=== PATIENT | male | born 1950 | race Caucasian/White ===

== ENCOUNTER 2018-04-24 19:50 | Emergency (ER) | payer OTHER, SELFPAY ==
[2018-04-24 19:29] VITALS: BP 130/85; PULSE 90; RESP 14; TEMP 37.1; O2SAT 100; BMI 23.3
[2018-04-24 19:50] VITALS: BP 166/98; PULSE 70; RESP 28; TEMP 36.8; O2SAT 100
[2018-04-24 20:02] VITALS: BP 130/85; PULSE 90; RESP 14; TEMP 37.1; O2SAT 100; BMI 23.3
--- NOTE | 2018-04-24 20:10 | ED_ITS ---
HPI - Nausea/Vomiting/Diarrhea General Chief complaint: Nausea/Vomiting/Diarrhea Stated complaint: N/V/diaphorisis w/ neg 12 lead. Time Seen by Provider: 04/24/18 20:10 Source: patient and family Mode of arrival: EMS Limitations: no limitations History of Present Illness HPI Narrative: Patient is a 67-year-old male here for evaluation of a fairly sudden onset of nausea and vomiting and diaphoresis. Patient states that throughout today he has been very anxious and stressed out about having individuals over for dinner this evening. He states that they did come over and they dinner. He states that afterwards he had a fairly sudden onset of diaphoresis in shaking chills and hot and cold spells. He did state that he had alcohol to drink this evening but ?not very much ?does appear that he drinks on a nightly basis. He states he does not know the exact cause of his symptoms however in the past he has had symptoms very similar to this which he did not seek help for. He states that lasted approximately 24 hr and then went away. He states that time he was feeling very stressed and anxious like he is feeling now. He did have some nausea without improved with Zofran prior to arrival here in the ER. Related Data Home Medications Medication Instructions Recorded Confirmed ibuprofen [Advil] 200 mg PO PRN PRN #0 tab 01/28/13 Previous Rx's Medication Instructions Recorded citalopram 20 mg PO QDAY #90 tab 03/22/18 temazepam 15 mg capsule 15 mg PO HS #20 cap 03/22/18 Allergies Allergy/AdvReac Type Severity Reaction Status Date / Time No Known Drug Allergies Allergy Unverified 04/24/18 19:32 Review of Systems Constitutional Reports body ache(s), Reports chills, Denies fatigue, Denies fever(s), Denies headache(s), Denies lethargy and Denies malaise Eyes Denies blurry vision and Denies diplopia ENT Ears, Nose, Mouth, and Throat: Denies vertigo, Denies dizziness and Denies headache(s) Cardiovascular Denies chest pain, Denies palpitations and Denies dyspnea Respiratory Denies cough and Denies dyspnea Gastrointestinal Gastrointestinal: Denies abdominal pain, Denies change in stool character, Reports nausea and Denies vomiting Musculoskeletal Denies myalgias and Denies arthralgias Integumentary/Breasts Denies lesions and Denies rash Neurologic Denies confusion, Denies vertigo, Denies dizziness, Denies headache(s), Denies focal weakness and Denies seizure-like activity Psychiatric Reports anxiety and Denies confusion Endocrine Denies fatigue and Denies palpitations Hematologic/Lymphatic Comments: Not on anticoagulation Allergic/Immunologic Denies urticaria PFSH Medical History Anxiety (Acute) Surgical History No pertinent past surgical history (Acute) Family History Brother Age: 56 Throat cancer Father Cancer Heart disease Mother Age: 92 Hypertension Stroke UTI (urinary tract infection) Social History Smoking Status: Never smoker Exam Initial Vital Signs Initial Vital Signs: Vital Signs Temperature 98.7 F 04/24/18 19:29 Pulse Rate 90 04/24/18 19:29 Respiratory Rate 14 04/24/18 19:29 Blood Pressure 130/85 04/24/18 19:29 Pulse Oximetry 100 04/24/18 19:29 Const General: cooperative, well developed, well groomed, No acute distress, anxious, diaphoretic, No ill appearing, No intoxicated appearing and well hydrated Orientation: alert, awake and oriented x3 HENMT Head: normal to inspection, normocephalic and atraumatic Resp Effort & Inspection: normal respiratory effort Auscultation: clear to auscultation bilaterally Cardio Rate: regular rate Rhythm: regular rhythm Pulses: radial pulses present GI Inspection: non-distended Palpation: soft, No firm and No tender Skin Lesions: no lesions Rashes: no rashes Neuro General: alert, awake and oriented x3 Cognition: normal cognition Speech: speech normal Sensory Exam: no sensory deficits noted Extrem General: normal to inspection and capillary refill normal Psych Appearance: grossly normal and well kempt Speech and Movement: not agitated Mood: anxious mood and No angry Attitude: cooperative Course Orders Ordered: ED Orders 04/24/18 20:20 Complete Blood Count AUTO DIFF Stat Comprehensive Metabolic Panel Stat Ethanol (ETOH) Stat Lipase Stat Troponin I Stat 04/24/18 21:55 Influenza A and B by PCR Rapid Stat Discontinued Medications Sodium Chloride (Normal Saline 0.9%) 1,000 mls @ 1,000 mls/hr IV BOLUS ONE Stop: 04/24/18 21:09 Last Infusion: 04/24/18 23:00 Dose: 0 mls/hr Admin: 04/24/18 20:42 Dose: 1,000 mls/hr Lorazepam (Ativan) 1 mg IV NOW ONE Stop: 04/24/18 20:48 Last Admin: 04/24/18 20:56 Dose: 1 mg Ondansetron HCl (Zofran) 4 mg IV NOW ONE Stop: 04/24/18 20:11 Vital Signs - 8 hr 04/24/18 19:29 04/24/18 19:50 04/24/18 20:02 Temperature 98.7 F 98.3 F 98.7 F Pulse Rate 90 70 90 Respiratory Rate 14 28 H 14 Blood Pressure 130/85 166/98 H 130/85 Blood Pressure [Left Arm] Pulse Oximetry 100 100 100 04/24/18 21:39 04/24/18 23:00 Temperature Pulse Rate 59 L 65 Respiratory Rate 17 20 Blood Pressure 190/88 H Blood Pressure [Left Arm] 172/84 H Pulse Oximetry 94 100 MDM - Nausea/Vomiting/Diarrhea Lab Data Attestation: I reviewed the patient's lab results. Result diagrams: 04/24/18 20:20 04/24/18 20:20 Lab Results 04/24/18 04/24/18 04/24/18 Range/Units 20:20 20:20 21:55 WBC 9.8 (4.5-11.0) X10^3/uL RBC 4.22 L (4.5-5.9) X10^6/uL Hgb 14.4 (13.5-17.5) g/dL Hct 41.6 (41-53) % MCV 98.8 (80-100) fL MCH 34.1 H (26-34) PG MCHC 34.5 (30-36) % RDW 13.5 (11.6-14.8) % Plt Count 160 (150-400) X10^3/uL Neut % (Auto) 86.3 H (50-75) % Lymph % (Auto) 9.4 L (25-40) % [place] % (Auto) 3.6 (3-14) % Eos % (Auto) 0.0 L (2-4) % Baso % (Auto) 0.7 (0-2) % Neut # (Auto) 8400 H (1691-6683) /uL Sodium 143 (137-145) mmol/L Potassium 3.8 (3.4-5.1) mmol/L Chloride 105 (98-107) mmol/L Carbon Dioxide 20 L (22-32) mmol/L BUN 14 (9-20) mg/dL Creatinine 0.50 L (0.66-1.25) mg/dL Estimated GFR > 60.0 (>60) mL/min BUN/Creatinine Ratio 28.0 H (6-22) Glucose 161 H (80-110) mg/dL Calcium 10.0 (8.4-10.2) mg/dL Total Bilirubin 0.8 (0.2-1.3) mg/dL AST 29 (17-59) IU/L ALT 29 (21-72) IU/L Alkaline Phosphatase 75 (38-126) U/L Troponin I < 0.012 (0.01-0.034) ng/mL Total Protein 7.6 (6.3-8.2) g/dL Albumin 4.7 (3.5-5.0) g/dL Globulin 2.9 (1.7-4.1) g/dL Albumin/Globulin Ratio 1.6 (1.0-2.8) Lipase 48 (23-300) U/L Ethyl Alcohol < 10 mg/dL Influenza A & B (PCR) Negative (Negative) ECG Data Attestation: I personally reviewed and interpreted this ECG as follows: Prior ECG tracings: not available for review Interpretation: Sinus rhythm Ventricular rate is 65 Normal as needed oval Normal QRS Normal QTC Normal axis No ST T wave changes MDM Narrative Medical decision making narrative: Physical exam and workup did not point towards an infectious source of his symptoms. Flu was negative. His alcohol level was 0 here in the emergency department. He states that he has never withdrawn from alcohol in the past however does have a fairly significant alcohol history to include daily drinking. I did consider alcohol withdrawal as the source of his symptoms this evening however patient does not think that this is the case. No signs of trauma. He did report a significant improvement of his symptoms after the Ativan. Has had symptoms similar to this in the past when he had anxiety issues. I do feel that this is most likely a panic attack or anxiety causing his symptoms. Hold on further workup. Low suspicion for ACS. Patient does have benzodiazepines at home that he can take. Will hold on further workup for now. Patient was given return precautions. He expressed understanding and agreement with plan. Discharge Plan Departure Patient Disposition: Home Clinical Impression: Anxiety, Diaphoresis Discharge Date/Time: 12/12/18 23:00 Interventions: ED Discharge Assessment Last Done: 04/24/18 23:00 Instructions: DI for Alcohol Abuse, DI for Anxiety -- Adult Activity Restrictions/Additional Instructions: Recommend you continue all of your medications as directed. Contact your primary care doctor tomorrow for a follow-up. No driving while you are drinking. Return to the emergency department for any new or worsening symptoms Prescriptions: No Action ibuprofen [Advil] 200 MG tablet 200 mg PO PRN PRNQty: 0 RF: 0 citalopram 20 mg tablet 20 mg PO QDAY Qty: 90 RF: 0 temazepam 15 mg capsule 15 mg PO HS Qty: 20 RF: 0
[2018-04-24 20:27] LABS: Add Manual Diff / Slide Review NO; Basophils Percent Auto 0.7 % (0-2); Hematocrit 41.6 % (41-53); Hemoglobin 14.4 g/dL (13.5-17.5); Lymphocytes Percent Auto 9.4 % (25-40); Mean Corpuscular HGB Conc 34.5 % (30-36); Mean Corpuscular Hemoglobin 34.1 PG (26-34); Mean Corpuscular Volume 98.8 fL (80-100); Monocytes Percent Auto 3.6 % (3-14); Neutrophils Absolute Auto 8400 /uL (3000-5900); Neutrophils Percent Auto 86.3 % (50-75); Platelet Count 160 X10^3/uL (150-400); Red Blood Cell Count 4.22 X10^6/uL (4.5-5.9); Red Cell Distribution Width 13.5 % (11.6-14.8); White Blood Cell Count 9.8 X10^3/uL (4.5-11.0)
[2018-04-24 20:39] LABS: Alanine Aminotransferase 29 IU/L (21-72); Albumin 4.7 g/dL (3.5-5.0); Albumin Globulin Ratio 1.6 (1.0-2.8); Alkaline Phosphatase 75 U/L (38-126); Aspartate Aminotransferase 29 IU/L (17-59); Bilirubin Total 0.8 mg/dL (0.2-1.3); Blood Urea Nitrogen 14 mg/dL (9-20); Carbon Dioxide 20 mmol/L (22-32); Chloride 105 mmol/L (98-107); Estimated Glomerular Filt Rate > 60.0 mL/min (>60); Ethanol (ETOH) < 10 mg/dL; Globulin 2.9 g/dL (1.7-4.1); Glucose 161 mg/dL (80-110); HEMOLYSIS < 15 (0-50); Lipase 48 U/L (23-300); Potassium 3.8 mmol/L (3.4-5.1); Sodium 143 mmol/L (137-145); Total Protein 7.6 g/dL (6.3-8.2)
[2018-04-24] MEDS: SODIUM CHLORIDE 0.9% 1,000 ML 1000 ML IV (20:42)
--- NOTE | 2018-04-24 20:48 | PC.NURSE ---
sudden onset tremors/diaphoresis/nausea x2 hours, reports very stressed today, ETOH intake of a beer and a half prior to episode, appears pale, chilled, reports similar episode approx 1 year ago also after drinking alcohol. States he has taken his regular medications today with no recent changes. Denies cp/soa/cough/diarrhea/dysuria/fever/trauma/dizziness/headache or other sx, NSR on monitor, lungs clear/equal bilat, abd soft/nontender
[2018-04-24 20:51] LABS: Troponin I < 0.012 ng/mL (0.01-0.034)
[2018-04-24] MEDS: LORazepam 2 MG/ML SYRINGE 1 MG IV (20:56)
[2018-04-24 21:39] VITALS: BP 172/84; PULSE 59; RESP 17; O2SAT 94
[2018-04-24 22:16] LABS: Influenza A and B by PCR Rapid Negative (Negative)
[2018-04-24 23:00] VITALS: BP 190/88; PULSE 65; RESP 20; O2SAT 100
[2018-04-25 17:15] LABS: Hemoglobin A1C% w Est Avg Glu 5.3 % (4.0-6.0)
== END 2018-04-24 23:00 | disposition home or self-care (01) ==
PROVIDERS: Emergency Provider Emergency Medicine; Family Provider Family Medicine; PCP Family Medicine
DX: F41.9 Anxiety disorder, unspecified (principal); R61 Generalized hyperhidrosis
CPT/HCPCS: 80053; 80320; 83036; 83690; 84484; 85025; 87400; 93005; 93010; 96361; 96374; 99283; 99284; J2060

== ENCOUNTER → 2018-08-28 13:39 | Outpatient (CLI) | payer OTHER, SELFPAY ==
[2018-08-28 14:47] LABS: Hemoglobin A1C% w Est Avg Glu 5.1 % (4.0-6.0)
[2018-08-28 15:26] LABS: Prostate Specific Antigen Scrn 1.33 ng/mL (0.1-4.0)
== END ==
PROVIDERS: Family Provider Family Medicine; PCP Family Medicine; Visit Provider Family Medicine
DX: R73.09 Other abnormal glucose (principal); Z12.5 Encounter for screening for malignant neoplasm of prostate
CPT/HCPCS: 36415; 83036; G0103

== ENCOUNTER → 2019-01-17 12:54 | Outpatient (CLI) | payer OTHER, SELFPAY ==
[2019-01-17 13:45] LABS: Alanine Aminotransferase 13 IU/L (21-72); Albumin 4.2 g/dL (3.5-5.0); Albumin Globulin Ratio 1.4 (1.0-2.8); Alkaline Phosphatase 67 U/L (38-126); Aspartate Aminotransferase 23 IU/L (17-59); BUN Creatinine Ratio 21.3 (6-22); Bilirubin Total 0.6 mg/dL (0.2-1.3); Blood Urea Nitrogen 17 mg/dL (9-20); C-Reactive Protein Quant 1.5 mg/dL (<1.0); Calcium 9.6 mg/dL (8.4-10.2); Carbon Dioxide 26 mmol/L (22-32); Chloride 104 mmol/L (98-107); Estimated Glomerular Filt Rate > 60.0 mL/min (>60); Globulin 3.1 g/dL (1.7-4.1); Glucose 81 mg/dL (80-110); HEMOLYSIS < 15 (0-50); Potassium 4.2 mmol/L (3.4-5.1); Sodium 140 mmol/L (137-145); Total Protein 7.3 g/dL (6.3-8.2); Uric Acid 6.8 mg/dL (3.5-8.5)
[2019-01-17 13:58] LABS: Rheumatoid Factor < 8.6 IU/mL (<12.0)
[2019-01-17 14:00] LABS: Add Manual Diff / Slide Review NO; Basophils Absolute Auto 0 /uL (0-100); Basophils Percent Auto 0.3 % (0-2); Eosinophils Absolute Auto 100 /uL (0-450); Eosinophils Percent Auto 1.2 % (2-4); Hematocrit 38.6 % (41-53); Hemoglobin 13.4 g/dL (13.5-17.5); Lymphocytes Absolute Auto 1600 /uL (1100-4500); Lymphocytes Percent Auto 20.3 % (25-40); Mean Corpuscular HGB Conc 34.7 % (30-36); Mean Corpuscular Hemoglobin 32.7 PG (26-34); Mean Corpuscular Volume 94.4 fL (80-100); Monocytes Absolute Auto 600 /uL (0-900); Monocytes Percent Auto 8.1 % (3-14); Neutrophils Absolute Auto 5500 /uL (1500-7000); Neutrophils Percent Auto 70.1 % (50-75); Platelet Count 182 X10^3/uL (150-400); Red Blood Cell Count 4.09 X10^6/uL (4.5-5.9); Red Cell Distribution Width 12.8 % (11.6-14.8); White Blood Cell Count 7.9 X10^3/uL (4.5-11.0)
[2019-01-17 14:17] LABS: Erythrocyte Sedimentation Rate 14 MM/HR (0-15)
[2019-01-19 20:08] LABS: ANA Screen, IFA Negative (Negative)
== END ==
PROVIDERS: PCP Family Medicine; Visit Provider Family Medicine
DX: M19.90 Unspecified osteoarthritis, unspecified site (principal); M25.50 Pain in unspecified joint; M25.539 Pain in unspecified wrist; M79.643 Pain in unspecified hand
CPT/HCPCS: 36415; 80053; 84550; 85025; 85651; 86038; 86140; 86430

== ENCOUNTER → 2019-01-30 10:50 | Outpatient (CLI) | payer OTHER, SELFPAY ==
--- NOTE | 2019-01-30 10:54 | DI.RAD.S_ITS ---
PROCEDURE: XR HAND RT MIN 3V INDICATIONS: Hand, wrist pain, all over joint pain, history or arthritis TECHNIQUE: 3 views of the hand(s) acquired. COMPARISON: None. FINDINGS: Bones: No fractures or dislocations. Carpal bones are normally aligned. No suspicious bony lesions. Degenerative changes are seen throughout, particularly involving the distal interphalangeal joints. At least one hooked osteophyte can be seen involving the 3rd metacarpal head. Soft tissues: There is a 2 mm radiopaque foreign body seen within the soft tissues adjacent to the proximal aspect of the distal phalanx of the thumb. IMPRESSION: Osteoarthritic degenerative changes are seen. At least one hooked osteophyte can be seen. This can be seen in patients with CPPD deposition disease as well as hemachromatosis. 2 mm foreign body involving the soft tissues of the thumb. Dictated by: Osvaldo Acuña M.D. on 01/30/2019 at 11:19 Approved by: Osvaldo Acuña M.D. on 01/30/2019 at 11:21
--- NOTE | 2019-01-30 10:54 | DI.RAD.S_ITS ---
PROCEDURE: XR HAND LT MIN 3V INDICATIONS: Hand, wrist pain, all over joint pain, history or arthritis TECHNIQUE: 3 views of the hand(s) acquired. COMPARISON: [facility], ANGELO, FINGER LT, 10/15/2008, 19:39. [facility], ANGELO, XR HAND RT MIN 3V, 01/30/2019, 10:51. FINDINGS: Bones: No fractures or dislocations. Carpal bones are normally aligned. No suspicious bony lesions. Osteoarthritic degenerative changes are seen, with joint space narrowing and associated irregularity and osteophyte formation, particularly involving the distal interphalangeal joints. There is remote injury with effusion involving the proximal interphalangeal joint of the 5th finger. Soft tissues: No suspicious soft tissue calcifications. IMPRESSION: Age-appropriate osteoarthritic degenerative changes are seen. Remote injury with fusion involving the proximal interphalangeal joint of the 5th finger, which is stable compared to 2008. Dictated by: Osvaldo Acuña M.D. on 01/30/2019 at 11:21 Approved by: Osvaldo Acuña M.D. on 01/30/2019 at 11:22
== END ==
PROVIDERS: PCP Family Medicine; Visit Provider Family Medicine
DX: M25.542 Pain in joints of left hand (principal); M25.541 Pain in joints of right hand; M25.532 Pain in left wrist; M25.531 Pain in right wrist; M25.741 Osteophyte, right hand; M25.742 Osteophyte, left hand; M79.5 Residual foreign body in soft tissue
CPT/HCPCS: 73130

== ENCOUNTER 2019-03-21 07:30 | Day surgery (SDC) | payer OTHER, SELFPAY ==
[2019-03-21] VITALS (7 sets, daily range): BP systolic 131–167; BP diastolic 74–91; PULSE 56–70; RESP 13–20; TEMP 36.2–36.6; O2SAT 96–98; BMI 24.3
--- NOTE | 2019-03-21 | PATH_ITS ---
[facility] Accession Number: [id number] . 01 Material submitted: . PART A: body - POLYP AT 64 PART B: rectum - RECTAL - LOW - POLYP . 01 Clinical history: . SCREENING COLONOSCOPY . 02 Diagnosis: A. Colon, Polyp At 64, Biopsy: Tubular adenoma. . B. Rectum, Low, Polyp, Biopsy: Tubular adenoma. I 03/24/2019 1033 Local . 02 Electronically signed: . Shani Lepe MD, Pathologist NPI- [id number] . 01 Gross description: . Part A: POLYP AT 64: Received in formalin are 2 fragment(s) of romero, soft tissue measuring 0.1 x 0.1 x 0.1 cm in aggregate submitted entirely in 1 cassette(s) Part B: RECTAL - LOW - POLYP: Received in formalin is 1 fragment(s) of romero, soft tissue measuring 0.2 x 0.2 x 0.2 cm submitted entirely in 1 cassette(s) /[facility] [place] 03/21/2019 1908 Local . 02 Pathologist provided ICD-10: D12.6, D12.8 . 02 CPT . 782267, 117466 Performed at: 01 [facility] [address], [place], [place] [id number] MD Marlon Hussein MD Phone: [phone] Performed at: 02 [facility] [address] [place], [place] [id number] MD Shani Lepe MD Phone: [phone]
[2019-03-21] MEDS: SODIUM CHLORIDE 0.9% 1,000 ML 200 ML IV (07:59)
--- NOTE | 2019-03-21 08:27 | P.HP_ITS ---
History of Present Illness History of Present Illness Date Patient Seen: 03/21/19 Time Patient Seen: 08:27 Chief complaint: [id number] SCREENING COLONOSCOPY Narrative: This is a 68-year-old man with no personal or family history of colon related diseases, but he has never had a screening colonoscopy. He denies any melena or hematochezia. He denies any abdominal pain or unexplained weight loss. He does have some arthritis and gout symptoms that are being managed by his primary care doctor. He denies ever having a heart attack or stroke, or any chest pain symptoms. ROS: Thirteen system review is negative other than as mentioned below and in HPI. PE: GENERAL: Well groomed and cooperative. Appears stated age. Answers questions promptly and appropriately. Vital signs noted. HENT: Normocephalic, atraumatic. Hearing intact. Oral mucosa is pink and moist. EYES: Conjunctiva pink, sclera white, no periorbital swelling. CARDIOVASCULAR: Regular rate. No pedal edema. RESPIRATORY: Normal respiratory rate, breathing comfortably on room air. GASTROINTESTINAL: Abdomen soft and non-distended GENITALURINARY: No flank tenderness. MUSCULOSKELETAL: Equal tone and mass bilaterally. SKIN: Warm, dry, soft, appropriate color for ethnicity. No other lesions, r ashes, or wounds. NEURO: Alert and Oriented X 3. No gross sensory deficits, or cognitive issues. PSYCH: Appropriate affect and mood. Patient History Medical History Anxiety (Acute) Surgical History No pertinent past surgical history (Acute) Family & Social History Family History Brother Age: 57 Throat cancer Father Cancer Heart disease Mother Age: 93 Hypertension Stroke UTI (urinary tract infection) Tobacco & Substance use: Smoking Status Never smoker alcohol intake frequency 0-2 drinks per day Substance Use Type does not use Meds Home Medications and Allergies Home Medications Medication Instructions Recorded Confirmed Type citalopram 20 mg tablet 20 mg PO QDAY #90 tab 08/29/18 03/21/19 Rx meloxicam 15 mg tablet 15 mg PO DAILY #60 tab 02/07/19 03/21/19 Rx Allergies Allergy/AdvReac Type Severity Reaction Status Date / Time No Known Drug Allergies Allergy Verified 03/21/19 07:57 Exam Vital Signs (past 8 hours): - 03/21/19 07:49 Temperature 97.9 F Pulse Rate 56 L Respiratory Rate 16 Blood Pressure 143/75 H Pulse Oximetry 97 Oxygen Delivery Method Room Air Assessment & Plan Assessment and plan (1) Colon cancer screening: Current visit: Yes Status: Acute (2) At average risk for colon cancer: Current visit: Yes Status: Acute Assessment & Plan narrative: This is a 68-year-old man who is relatively healthy but has never had a colon cancer screening. Risks and benefits of screening colonoscopy and possible polypectomy were described including risk of bleeding, perforation, need for surgery, need for prolonged hospital stay, need for additional procedures. The patient desires to proceed with his colonoscopy procedure. Plan: Screening colonoscopy and possible polypectomy Time Spent With Patient Time with patient: 15-24 minutes Quality VTE Deep Vein Thrombosis/Pulmonary Embolism Present on Admission: No
[2019-03-21] MEDS: MIDAZOLAM 5 MG/5 ML VIAL IV (08:56)
[2019-03-21] MEDS: fentaNYL 250 MCG/5 ML INJ IV (08:57)
--- NOTE | 2019-03-21 08:59 | PM.OP.ENDO ---
Operative Date/Time/Diagnoses Date of procedure: 03/21/19 Time of procedure: 09:02 Pre-op diagnosis: Average risk for colon cancer, never had a screening colonoscopy Post-op diagnosis: other (Colon polyps) Procedure & Clinicians Study performed: Colonoscopy, polypectomy x2 with cold forceps Same procedure as scheduled: Yes Indications: Average risk for colon cancer, never had a colonoscopy Surgeon: Lilli Sousa Procedure Notes SCOAP/Timeout: Performed Procedure in detail: The patient was brought to the room and placed in left lateral decubitus position with all bony prominences padded. A time-out was performed and then the patient was given procedural sedation starting with [4] mg of Versed and [100] mcg of fentanyl. Vitals were monitored throughout the procedure and remained stable. Once adequately sedated the procedure was begun. A rectal exam was performed revealing [no abnormalities]. The colonoscope was then introduced to the rectum and advanced to the cecum in the usual fashion. []The cecum was identified by the appendiceal orifice, the mucosal try fold, and the ileocecal valve. The scope was then retracted while rotating side to side and examining each mucosal fold. [2 polyps were removed 1 flat polyp at 65 cm and 1 flap polyp low in the rectum about 5 cm from the anal verge. Both removed with cold forceps with good hemostasis] At the conclusion procedure retroflexion was performed and [small grade 1 internal hemorrhoids without stigmata of bleeding were seen]. The scope was then withdrawn from the rectum the procedure was concluded. The patient tolerated the procedure well was transferred to the PACU in stable condition. Scope withdrawal time: 11 Sedation minutes: 19 Findings: polyp Specimen(s): other (Two polyps were sent, 1 at 65 cm and 1 at 5 cm from the anal verge. Both were flat sessile polyps less than half a cm in size) Complications: none Impression: Normal colon, except for 2 small polyps Post-procedure Recommendations: Colonscopy in 10 years (As long as pathology is non neoplastic) Follow up: as needed Disposition: PACU
--- NOTE | 2019-03-21 09:39 | SUR.PHASEII ---
pt awake and alert. denies any complaints. No distress noted . pt d/sindy with his .
== END 2019-03-21 09:39 | disposition home or self-care (01) ==
PROVIDERS: PCP Family Medicine; Visit Provider Surgery
PROC: 0DJD8ZZ Inspection of Lower Intestinal Tract, Via Natural or Artificial Opening Endoscopic (ICD-10-PCS; CPT 45378; principal; 2019-03-21 08:45)
DX: Z12.11 Encounter for screening for malignant neoplasm of colon (principal); F41.9 Anxiety disorder, unspecified; D12.6 Benign neoplasm of colon, unspecified; D12.8 Benign neoplasm of rectum
CPT/HCPCS: 45380; 99152; J2250; J3010

== ENCOUNTER 2019-09-04 14:27 | Emergency (ER) | payer OTHER, SELFPAY ==
[2019-09-04 14:30] VITALS: BP 147/113; PULSE 111; RESP 15; TEMP 37.1; O2SAT 95; BMI 22.8
--- NOTE | 2019-09-04 15:10 | ED.ALCOHOL ---
HPI - Alcohol General Chief Complaint: Toxicology Problem Stated Complaint: alcohol detox x3-4 days Time Seen by Provider: 09/04/19 14:43 Source: patient Mode of arrival: Ambulatory Limitations: no limitations History of Present Illness HPI narrative: Patient here voluntarily for alcohol sensation/withdrawal symptoms. Patient states he just turned 69 years of age last month and he has been drinking daily/alcohol for many decades and he has decided to stop drinking alcohol. Last drink was more than 72 hours ago. Patient states has never gone to rehab in the past. No substance abuse treatment. Denies any SI or HI. No auditory or visual hallucinations. Here because of nausea and vomiting worse with p.o. challenge. Has insomnia and has some tremors. Denies any fall or injury. Denies any pain. He does have medication for anxiety but has not taken it because anything by mouth causes him to vomit. No active vomiting at this time. 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 He does not wish for inpatient treatment. He would like referrals for outpatient. MD complaint: alcohol withdrawal Associated symptoms: nausea and vomiting Related Data Previous Rx's Medication Instructions Recorded citalopram 20 mg tablet 20 mg PO QDAY #90 tab 08/29/18 meloxicam 15 mg tablet 15 mg PO DAILY #60 tab 02/07/19 temazepam 15 mg capsule 15 mg PO HS #60 cap 04/23/19 ondansetron 4 mg PO Q8H PRN #10 tab 09/04/19 pantoprazole [Protonix] 40 mg PO DAILY #14 tab 09/04/19 Allergies Allergy/AdvReac Type Severity Reaction Status Date / Time No Known Drug Allergies Allergy Verified 09/04/19 14:41 Review of Systems Review of Systems Narrative: GENERAL: Denies chills, fatigue, malaise, fever, sweats. HEENT: Denies sinus pain, ear pain, sore throat, difficulty swallowing, dizziness. RESPIRATORY: Denies dyspnea, cough, wheezing, hemoptysis, sputum. CARDIOVASCULAR: Denies chest pain, palpitations, orthopnea, edema, GASTROINTESTINAL: Denies any abdominal pain. No diarrhea. Has nausea and vomiting, nonbloody : Denies dysuria, frequency, incontinence, hematuria, urinary retention. MUSCULOSKELETAL: denies weakness, joint pain, or bony pain SKIN: Denies rash, skin lesions, or other NEUROLOGIC: Denies weakness, headache, numbness, change in speech, confusion, seizures, incoordination. PSYCHIATRIC: Feels anxious 12 point review of systems is negative except for those stated above ROS Unobtainable: All systems reviewed & are unremarkable except as noted in HPI and below Patient History Medical History Anxiety (Acute) Surgical History No pertinent past surgical history (Acute) Family History Brother Age: 57 Throat cancer Father Cancer Heart disease Mother Age: 93 Hypertension Stroke UTI (urinary tract infection) Social History Smoking Status: Never smoker Smoking Status: Never smoker alcohol intake frequency: 3 or more drinks per day Substance Use Type: does not use Exam Narrative Exam Narrative: GENERAL: [69] year old patient appears stated age. Well-nourished, well-developed patient, in no distress, not toxic HEAD: Atraumatic. Normocephalic. EYES: Pupils equal round and reactive. Extraocular motions intact. No scleral icterus. No injection or drainage. ENT: Nose without bleeding, purulent drainage. Throat without erythema, tonsillar hypertrophy or exudate. Airway patent. NECK: Trachea midline. Non tender CARDIOVASCULAR: Regular rate and rhythm without murmurs, gallops, or rubs. RESPIRATORY: Clear to auscultation. Breath sounds equal bilaterally. No wheezes, rales, or rhonchi. GASTROINTESTINAL: Abdomen soft, non-tender, nondistended. EXTREMITIES: No edema or joint tenderness. BACK: Nontender without deformity or crepitance. No flank tenderness. NEURO: AOx4 SKIN: No rash or erythema of visible areas Patient slightly anxious but not toxic appearing. Patient is cooperative. Does not appear depressed. No SI no HI. Not flat affect. No tangential thoughts or flight of ideas. No visual or auditory hallucinations. Slight tremors of the hands. Initial Vital Signs Initial Vital Signs: Vital Signs Temperature 98.7 F 09/04/19 14:30 Pulse Rate 111 H 09/04/19 14:30 Respiratory Rate 15 09/04/19 14:30 Blood Pressure 147/113 H 09/04/19 14:30 Pulse Oximetry 95 09/04/19 14:30 Course Orders Ordered: ED Orders 09/04/19 14:40 Complete Blood Count AUTO DIFF Stat Comprehensive Metabolic Panel Stat Ethanol (ETOH) Stat Lipase Stat Discontinued Medications Sodium Chloride (Normal Saline 0.9%) 1,000 mls @ 1,000 mls/hr IV BOLUS ONE Stop: 09/04/19 16:06 Last Infusion: 09/04/19 16:29 Dose: 0 mls/hr Documented by: Admin: 09/04/19 15:19 Dose: 1,000 mls/hr Documented by: ANISA Lorazepam (Ativan) 1 mg IV NOW ONE Stop: 09/04/19 15:08 Last Admin: 09/04/19 15:22 Dose: 1 mg Documented by: ANISA Multivitamins (Tab-A-Mily) 1 tab PO NOW ONE Stop: 09/04/19 15:08 Last Admin: 09/04/19 15:28 Dose: 1 tab Documented by: ANISA Ondansetron HCl (Zofran) 4 mg IV NOW ONE Stop: 09/04/19 15:08 Last Admin: 09/04/19 15:18 Dose: 4 mg Documented by: ANISA Pantoprazole Sodium (Protonix) 40 mg IV NOW ONE Stop: 09/04/19 15:25 Last Admin: 09/04/19 15:31 Dose: 40 mg Documented by: ANISA Reevaluation(s) Reevaluation #1: Blood pressure improved to 121/72. Patient resting comfortably. No nausea or vomiting. No tremors. Resting very comfortable. He desires discharge home. Not toxic at discharge. Time 5:00 p.m. Vital Signs Vital signs: Vital Signs - 8 hr 09/04/19 14:30 09/04/19 16:30 Temperature 98.7 F Pulse Rate 111 H 84 Respiratory Rate 15 16 Blood Pressure 147/113 H Blood Pressure [Left Arm] 121/72 Pulse Oximetry 95 92 MDM - Alcohol Differential Diagnosis Differential diagnosis: Likely alcohol withdrawal syndrome Lab Data Result diagrams: 09/04/19 14:40 09/04/19 14:40 Labs: Lab Results 09/04/19 09/04/19 Range/Units 14:40 14:40 WBC 9.5 (4.5-11.0) X10^3/uL RBC 4.79 (4.5-5.9) X10^6/uL Hgb 16.2 (13.5-17.5) g/dL Hct 45.6 (41-53) % MCV 95.1 (80-100) fL MCH 33.7 (26-34) PG MCHC 35.5 (30-36) % RDW 13.8 (11.6-14.8) % Plt Count 155 (150-400) X10^3/uL Neut % (Auto) 77.1 H (50-75) % Lymph % (Auto) 11.1 L (25-40) % [place] % (Auto) 11.6 (3-14) % Eos % (Auto) 0.1 L (2-4) % Baso % (Auto) 0.1 (0-2) % Neut # (Auto) 7300 H (4799-0038) /uL Lymph # (Auto) 1100 (8054-1869) /uL [place] # (Auto) 1100 H (0-900) /uL Eos # (Auto) 0 (0-450) /uL Baso # (Auto) 0 (0-100) /uL Sodium 135 L (137-145) mmol/L Potassium 3.2 L (3.4-5.1) mmol/L Chloride 99 (98-107) mmol/L Carbon Dioxide 21 L (22-32) mmol/L BUN 21 H (9-20) mg/dL Creatinine 0.61 L (0.66-1.25) mg/dL Estimated GFR > 60.0 (>60) mL/min BUN/Creatinine Ratio 34.4 H (6-22) Glucose 122 H (80-110) mg/dL Calcium 9.9 (8.4-10.2) mg/dL Total Bilirubin 0.8 (0.2-1.3) mg/dL AST 61 H (17-59) IU/L ALT 52 H (<50) IU/L Alkaline Phosphatase 77 (38-126) U/L Total Protein 7.9 (6.3-8.2) g/dL Albumin 4.7 (3.5-5.0) g/dL Globulin 3.2 (1.7-4.1) g/dL Albumin/Globulin Ratio 1.5 (1.0-2.8) Lipase 52 (23-300) U/L Ethyl Alcohol < 10 ( - 10) mg/dL MDM Narrative Medical decision making narrative: Telemetry dedicated this time. Patient cooperative nontoxic. Blood pressure noted. Patient is slightly anxious. Patient does have a family physician. He was told by the family physician to go to the ER today. Patient is cooperative, not toxic appearing. No SI or HI. Patient does not want inpatient rehabilitation. Patient is on citalopram for anxiety Low CIWA score..5 Discharge Plan Departure Patient Disposition: Home Clinical Impression: Alcohol withdrawal syndrome Qualifiers: Complication of substance-induced condition: uncomplicated Qualified Code(s): F10.230 - Alcohol dependence with withdrawal, uncomplicated Instructions: DI for Alcohol Abuse, Drug and Alcohol Withdrawal, DI for Alcoholic Gastritis Activity Restrictions/Additional Instructions: See family physician within a week for recheck and for referral for outpatient treatment for alcohol abuse. Or call provided clinic list. No driving today. Return if worse. Prescriptions: New ondansetron 4 mg tablet,disintegrating 4 mg PO Q8H PRN (Reason: nausea and vomiting) Qty: 10 RF: 0 pantoprazole [Protonix] 40 mg tablet,delayed release (DR/EC) 40 mg PO DAILY Qty: 14 RF: 0 No Action temazepam 15 mg capsule 15 mg PO HS Qty: 60 RF: 5 citalopram 20 mg tablet 20 mg PO QDAY Qty: 90 RF: 3 meloxicam 15 mg tablet 15 mg PO DAILY Qty: 60 RF: 5 Referrals: Luis Daniel Lin MD [Primary Care Provider] -
[2019-09-04 15:17] LABS: Add Manual Diff / Slide Review NO; Basophils Absolute Auto 0 /uL (0-100); Basophils Percent Auto 0.1 % (0-2); Eosinophils Absolute Auto 0 /uL (0-450); Eosinophils Percent Auto 0.1 % (2-4); Hematocrit 45.6 % (41-53); Hemoglobin 16.2 g/dL (13.5-17.5); Lymphocytes Absolute Auto 1100 /uL (1100-4500); Lymphocytes Percent Auto 11.1 % (25-40); Mean Corpuscular HGB Conc 35.5 % (30-36); Mean Corpuscular Hemoglobin 33.7 PG (26-34); Mean Corpuscular Volume 95.1 fL (80-100); Monocytes Absolute Auto 1100 /uL (0-900); Monocytes Percent Auto 11.6 % (3-14); Neutrophils Absolute Auto 7300 /uL (1500-7000); Neutrophils Percent Auto 77.1 % (50-75); Platelet Count 155 X10^3/uL (150-400); Red Blood Cell Count 4.79 X10^6/uL (4.5-5.9); Red Cell Distribution Width 13.8 % (11.6-14.8); White Blood Cell Count 9.5 X10^3/uL (4.5-11.0)
[2019-09-04] MEDS: ONDANSETRON 4 MG/2 ML INJ IV (15:18)
[2019-09-04] MEDS: SODIUM CHLORIDE 0.9% 1,000 ML 1000 ML IV (15:19)
[2019-09-04] MEDS: LORazepam 2 MG/ML INJ 1 MG IV (15:22)
[2019-09-04 15:23] LABS: Alanine Aminotransferase 52 IU/L (<50); Albumin 4.7 g/dL (3.5-5.0); Albumin Globulin Ratio 1.5 (1.0-2.8); Alkaline Phosphatase 77 U/L (38-126); Aspartate Aminotransferase 61 IU/L (17-59); BUN Creatinine Ratio 34.4 (6-22); Bilirubin Total 0.8 mg/dL (0.2-1.3); Blood Urea Nitrogen 21 mg/dL (9-20); Calcium 9.9 mg/dL (8.4-10.2); Carbon Dioxide 21 mmol/L (22-32); Chloride 99 mmol/L (98-107); Estimated Glomerular Filt Rate > 60.0 mL/min (>60); Ethanol (ETOH) < 10 mg/dL; Globulin 3.2 g/dL (1.7-4.1); Glucose 122 mg/dL (80-110); HEMOLYSIS 19 (0-50); Lipase 52 U/L (23-300); Potassium 3.2 mmol/L (3.4-5.1); Sodium 135 mmol/L (137-145); Total Protein 7.9 g/dL (6.3-8.2)
[2019-09-04] MEDS: MULTIVITAMIN 1 TABLET 1 TAB PO (15:28)
[2019-09-04] MEDS: PANTOPRAZOLE 40 MG VIAL IV (15:31)
[2019-09-04 16:30] VITALS: BP 121/72; PULSE 84; RESP 16; O2SAT 92
--- NOTE | 2019-09-04 17:23 | ED_ITS ---
HPI - Alcohol General Chief Complaint: Toxicology Problem Stated Complaint: alcohol detox x3-4 days Time Seen by Provider: 09/04/19 14:43 Source: patient Mode of arrival: Ambulatory Limitations: no limitations Related Data Previous Rx's Medication Instructions Recorded citalopram 20 mg tablet 20 mg PO QDAY #90 tab 08/29/18 meloxicam 15 mg tablet 15 mg PO DAILY #60 tab 02/07/19 temazepam 15 mg capsule 15 mg PO HS #60 cap 04/23/19 ondansetron 4 mg PO Q8H PRN #10 tab 09/04/19 pantoprazole [Protonix] 40 mg PO DAILY #14 tab 09/04/19 Allergies Allergy/AdvReac Type Severity Reaction Status Date / Time No Known Drug Allergies Allergy Verified 09/04/19 14:41 Patient History Medical History Anxiety (Acute) Surgical History No pertinent past surgical history (Acute) Family History Brother Age: 57 Throat cancer Father Cancer Heart disease Mother Age: 93 Hypertension Stroke UTI (urinary tract infection) Social History Smoking Status: Never smoker Smoking Status: Never smoker alcohol intake frequency: 3 or more drinks per day Substance Use Type: does not use Exam Initial Vital Signs Initial Vital Signs: Vital Signs Temperature 98.7 F 09/04/19 14:30 Pulse Rate 111 H 09/04/19 14:30 Respiratory Rate 15 09/04/19 14:30 Blood Pressure 147/113 H 09/04/19 14:30 Pulse Oximetry 95 09/04/19 14:30 Course Orders Ordered: ED Orders 09/04/19 14:40 Complete Blood Count AUTO DIFF Stat Comprehensive Metabolic Panel Stat Ethanol (ETOH) Stat Lipase Stat Discontinued Medications Sodium Chloride (Normal Saline 0.9%) 1,000 mls @ 1,000 mls/hr IV BOLUS ONE Stop: 09/04/19 16:06 Last Infusion: 09/04/19 16:29 Dose: 0 mls/hr Documented by: Admin: 09/04/19 15:19 Dose: 1,000 mls/hr Documented by: ANISA Lorazepam (Ativan) 1 mg IV NOW ONE Stop: 09/04/19 15:08 Last Admin: 09/04/19 15:22 Dose: 1 mg Documented by: ANISA Multivitamins (Tab-A-Mily) 1 tab PO NOW ONE Stop: 09/04/19 15:08 Last Admin: 09/04/19 15:28 Dose: 1 tab Documented by: ANISA Ondansetron HCl (Zofran) 4 mg IV NOW ONE Stop: 09/04/19 15:08 Last Admin: 09/04/19 15:18 Dose: 4 mg Documented by: ANISA Pantoprazole Sodium (Protonix) 40 mg IV NOW ONE Stop: 09/04/19 15:25 Last Admin: 09/04/19 15:31 Dose: 40 mg Documented by: ANISA Vital Signs Vital signs: Vital Signs - 8 hr 09/04/19 14:30 09/04/19 16:30 Temperature 98.7 F Pulse Rate 111 H 84 Respiratory Rate 15 16 Blood Pressure 147/113 H Blood Pressure [Left Arm] 121/72 Pulse Oximetry 95 92 MDM - Alcohol Lab Data Result diagrams: 09/04/19 14:40 09/04/19 14:40 Labs: Lab Results 09/04/19 09/04/19 Range/Units 14:40 14:40 WBC 9.5 (4.5-11.0) X10^3/uL RBC 4.79 (4.5-5.9) X10^6/uL Hgb 16.2 (13.5-17.5) g/dL Hct 45.6 (41-53) % MCV 95.1 (80-100) fL MCH 33.7 (26-34) PG MCHC 35.5 (30-36) % RDW 13.8 (11.6-14.8) % Plt Count 155 (150-400) X10^3/uL Neut % (Auto) 77.1 H (50-75) % Lymph % (Auto) 11.1 L (25-40) % [place] % (Auto) 11.6 (3-14) % Eos % (Auto) 0.1 L (2-4) % Baso % (Auto) 0.1 (0-2) % Neut # (Auto) 7300 H (0834-7806) /uL Lymph # (Auto) 1100 (0462-8104) /uL [place] # (Auto) 1100 H (0-900) /uL Eos # (Auto) 0 (0-450) /uL Baso # (Auto) 0 (0-100) /uL Sodium 135 L (137-145) mmol/L Potassium 3.2 L (3.4-5.1) mmol/L Chloride 99 (98-107) mmol/L Carbon Dioxide 21 L (22-32) mmol/L BUN 21 H (9-20) mg/dL Creatinine 0.61 L (0.66-1.25) mg/dL Estimated GFR > 60.0 (>60) mL/min BUN/Creatinine Ratio 34.4 H (6-22) Glucose 122 H (80-110) mg/dL Calcium 9.9 (8.4-10.2) mg/dL Total Bilirubin 0.8 (0.2-1.3) mg/dL AST 61 H (17-59) IU/L ALT 52 H (<50) IU/L Alkaline Phosphatase 77 (38-126) U/L Total Protein 7.9 (6.3-8.2) g/dL Albumin 4.7 (3.5-5.0) g/dL Globulin 3.2 (1.7-4.1) g/dL Albumin/Globulin Ratio 1.5 (1.0-2.8) Lipase 52 (23-300) U/L Ethyl Alcohol < 10 ( - 10) mg/dL Discharge Plan Departure Patient Disposition: Home Clinical Impression: Alcohol withdrawal syndrome Qualifiers: Complication of substance-induced condition: uncomplicated Qualified Code(s): F10.230 - Alcohol dependence with withdrawal, uncomplicated Instructions: DI for Alcohol Abuse, Drug and Alcohol Withdrawal, DI for Alcoholic Gastritis Activity Restrictions/Additional Instructions: See family physician within a week for recheck and for referral for outpatient treatment for alcohol abuse. Or call provided clinic list. No driving today. Return if worse. Prescriptions: New ondansetron 4 mg tablet,disintegrating 4 mg PO Q8H PRN (Reason: nausea and vomiting) Qty: 10 RF: 0 pantoprazole [Protonix] 40 mg tablet,delayed release (DR/EC) 40 mg PO DAILY Qty: 14 RF: 0 No Action temazepam 15 mg capsule 15 mg PO HS Qty: 60 RF: 5 citalopram 20 mg tablet 20 mg PO QDAY Qty: 90 RF: 3 meloxicam 15 mg tablet 15 mg PO DAILY Qty: 60 RF: 5 Referrals: Luis Daniel Lin MD [Primary Care Provider] -
== END 2019-09-04 17:30 | disposition home or self-care (01) ==
PROVIDERS: Emergency Provider Emergency Medicine; PCP Family Medicine
DX: F10.230 Alcohol dependence with withdrawal, uncomplicated (principal); R11.2 Nausea with vomiting, unspecified
CPT/HCPCS: 36415; 80053; 80320; 83690; 85025; 96361; 96374; 96375; 99284; C9113; J2060; J2405

== ENCOUNTER → 2020-03-05 09:39 | Outpatient (CLI) | payer OTHER, SELFPAY ==
--- NOTE | 2020-03-05 09:41 | DI.MRI.S_ITS ---
PROCEDURE: MR CERVICAL SPINE WO CON INDICATIONS: Neck pain TECHNIQUE: Noncontrast sagittal T1 spin echo and T2 fast spin echo, sagittal STIR, foraminal oblique sagittal T2 fast spin echo, and axial gradient echo or T2 fast spin echo through the cervical spine. COMPARISON: [facility], CR, XR CERVICAL SPINE WITH OBLIQUES, 04/22/2019, 14:38. FINDINGS: Image quality: Excellent. Alignment and Curvature: There is normal bony alignment. Bone Marrow: Marrow demonstrates normal overall signal. Spinal Cord: Visualized spinal cord has normal size and signal. No cerebellar tonsillar herniation. Paraspinous Soft Tissues: No paravertebral masses. Prevertebral soft tissues are normal in thickness. C2-C3: Moderate loss of disc height is seen. Loss of disc signal is seen. Mild to moderate disc osteophyte complex is seen, which is eccentric to the left. Mild facet joint hypertrophy is seen. There is at least moderate bilateral neural foraminal narrowing seen. The central canal is widely patent. C3-C4: Moderate loss of disc height is seen. Loss of disc signal is seen. Moderate disc osteophyte complex is seen, which is eccentric to the right. Moderate facet hypertrophy is seen, left worse than right. There is moderate to severe bilateral neural foraminal narrowing seen, left worse than right. Mild to moderate central canal narrowing is seen. C4-C5: At least moderate loss of disc height and disc signal can be seen. Bridging endplate osteophytes are seen. At least moderate disc osteophyte complex is seen, which is eccentric to the right. There is a central/right disc osteophyte protrusion seen posteriorly. Moderate facet hypertrophy is seen, left worse than right. There is moderate to severe bilateral neural foraminal narrowing seen. At least moderate central canal narrowing is seen. There is associated mass effect upon the ventral spinal cord. C5-C6: At least moderate loss of disc height and disc signal can be seen. Moderate disc osteophyte complex is seen, with a central disc osteophyte protrusion seen. Bridging endplate osteophytes are seen. Moderate facet joint hypertrophy is seen. There is moderate to severe bilateral neural foraminal narrowing seen, right worse than left. Moderate to severe central canal narrowing is seen, with associated mass effect upon the ventral spinal cord. C6-C7: At least moderate loss of disc height and disc signal can be seen. Moderate disc osteophyte complex is seen, with a central disc osteophyte protrusion. Reactive marrow endplate changes are seen which are hypointense on T1-weighted imaging and hyperintense on T2 weighted imaging, which is most consistent with edema (Modic type I changes). Bridging endplate osteophytes are seen. Moderate facet joint hypertrophy is seen. Moderate to severe bilateral neural foraminal narrowing is seen. At least moderate central canal narrowing is seen. There is associated mass effect upon the ventral spinal cord. C7-T1: Moderate to severe loss of disc height and disc signal can be seen. Reactive marrow endplate changes are seen, which are hyperintense on T1-weighted and T2-weighted imaging and most consistent with fatty metaplasia (Modic type II changes). Bridging endplate osteophytes are seen. At least moderate disc osteophyte complex is seen, with a central disc osteophyte protrusion. Mild to moderate facet hypertrophy is seen. There is moderate to severe bilateral neural foraminal narrowing seen, left worse than right. Moderate central canal narrowing is seen. IMPRESSION: Multiple levels of prominent cervical spine degenerative change are seen. There is moderate to severe bilateral neural foraminal narrowing seen at C3-C4, C4-C5, C5-C6, C6-C7, and C7-T1. Moderate to severe central canal narrowing is seen at C5-C6, with at least moderate central canal narrowing seen at C4-C5 and C6-C7, with moderate central canal narrowing seen at C7-T1. Dictated by: Osvaldo Acuña M.D. on 03/05/2020 at 10:49 Approved by: Osvaldo Acuña M.D. on 03/05/2020 at 10:55
== END ==
PROVIDERS: PCP Family Medicine; Referring Provider Family Medicine; Visit Provider Family Medicine
DX: M54.2 Cervicalgia (principal); M47.812 Spondylosis without myelopathy or radiculopathy, cervical region; M48.02 Spinal stenosis, cervical region; M48.03 Spinal stenosis, cervicothoracic region
CPT/HCPCS: 72141

== ENCOUNTER → 2020-05-19 10:34 | Outpatient (CLI) | payer OTHER, SELFPAY ==
[2020-05-19 11:08] LABS: COVID19 -Nasal RAPID Negative (Negative)
== END ==
PROVIDERS: PCP Family Medicine; Visit Provider Family Medicine
DX: R05 Cough (principal)
CPT/HCPCS: 87635

== ENCOUNTER → 2020-06-08 12:09 | Outpatient (CLI) | payer OTHER, SELFPAY ==
[2020-06-08 12:54] LABS: Add Manual Diff / Slide Review NO; Basophils Absolute Auto 0 /uL (0-100); Basophils Percent Auto 0.4 % (0-2); Eosinophils Absolute Auto 100 /uL (0-450); Eosinophils Percent Auto 1.2 % (2-4); Hematocrit 41.5 % (41-53); Hemoglobin 13.8 g/dL (13.5-17.5); Lymphocytes Absolute Auto 1800 /uL (1100-4500); Lymphocytes Percent Auto 20.3 % (25-40); Mean Corpuscular HGB Conc 33.3 % (30-36); Mean Corpuscular Hemoglobin 32.5 PG (26-34); Mean Corpuscular Volume 97.6 fL (80-100); Monocytes Absolute Auto 900 /uL (0-900); Neutrophils Absolute Auto 5900 /uL (1500-7000); Neutrophils Percent Auto 68.1 % (50-75); Platelet Count 204 X10^3/uL (150-400); Red Blood Cell Count 4.25 X10^6/uL (4.5-5.9); White Blood Cell Count 8.6 X10^3/uL (4.5-11.0)
[2020-06-08 13:16] LABS: Alanine Aminotransferase 21 IU/L (<50); Albumin Globulin Ratio 1.7 (1.0-2.8); Alkaline Phosphatase 62 U/L (38-126); Aspartate Aminotransferase 20 IU/L (17-59); BUN Creatinine Ratio 26.2 (6-22); Bilirubin Total 0.4 mg/dL (0.2-1.3); Blood Urea Nitrogen 16 mg/dL (9-20); Calcium 9.4 mg/dL (8.4-10.2); Carbon Dioxide 33 mmol/L (22-32); Chloride 100 mmol/L (98-107); Estimated Glomerular Filt Rate > 60.0 mL/min (>60); Globulin 2.4 g/dL (1.7-4.1); Glucose 94 mg/dL (80-110); HEMOLYSIS < 15 (0-50); Potassium 3.7 mmol/L (3.4-5.1); Sodium 137 mmol/L (137-145); Total Protein 6.4 g/dL (6.3-8.2)
== END ==
PROVIDERS: PCP Family Medicine; Referring Provider Family Medicine; Visit Provider Family Medicine
DX: F41.9 Anxiety disorder, unspecified (principal); J01.20 Acute ethmoidal sinusitis, unspecified
CPT/HCPCS: 36415; 80053; 85025

== ENCOUNTER → 2020-06-11 11:15 | Outpatient (CLI) | payer OTHER, SELFPAY ==
--- NOTE | 2020-06-11 11:16 | DI.RAD.S_ITS ---
PROCEDURE: XR CHEST 2V INDICATIONS: sinusitis and cough TECHNIQUE: 2 views of the chest were acquired. COMPARISON: [facility], , CHEST 2 VIEW, 10/15/2008, 19:39. FINDINGS: Surgical changes and devices: None. Lungs and pleura: Lungs are clear. No pleural effusions or pneumothorax. Mediastinum: Mediastinal contours are normal. Heart size is normal. Bones and chest wall: No suspicious bony abnormalities. Soft tissues appear unremarkable. IMPRESSION: No acute cardiopulmonary disease. Dictated by: Naty Pittman M.D. on 06/11/2020 at 13:22 Approved by: Naty Pittman M.D. on 06/11/2020 at 13:22
== END ==
PROVIDERS: PCP Family Medicine; Referring Provider Family Medicine; Visit Provider Family Medicine
DX: J01.20 Acute ethmoidal sinusitis, unspecified (principal); R05 Cough; F41.9 Anxiety disorder, unspecified
CPT/HCPCS: 71046

== ENCOUNTER → 2021-04-25 07:48 | Outpatient (CLI) | payer OTHER, SELFPAY ==
--- NOTE | 2021-04-25 | DI.ECHO.S_ITS ---
[facility] +---------+ : : [address] [place] : : : : [id number] : : : : Phone: [phone]+ Echocardiogram Report + + :Name: MAYLIN BERNABE Study Date: 04/25/2021 Height: 69 in : :[facility] ReadingLocation: Weight: 170 lb : : Gender: Male BSA: 1.9 m2 : :: 1950 Age: 70 yrs BP: 115/71 mmHg: :Reason For Study: ISCHEMIC CARDIOMYOPATHY, RULE OUT APICAL : :CLOT : :Ordering Physician: KAITY, : :MINA Performed By: Mercedes Alves : :Referring: MINA BRICENO : + + Interpretation Summary The left ventricle is normal in size and wall thickness. The ejection fraction is estimated to be 55-60%. There is no LV thrombus. Compared to the prior exam, the apical wall motion abnormality is improved. The right ventricle is grossly normal size. The right ventricular systolic function is normal. The IVC is of normal diameter and collapses greater than 50% with a sniff. This suggests a low right atrial pressure of 3 mm Hg. Procedure: A two-dimensional transthoracic echocardiogram with color flow and Doppler was performed in limited views only to assess rule out apical clot.. The study quality was technically good. Comparison is made with the echocardiogram of 04/02/2021. The patient was in sinus bradycardia with heart rates between 50-53 bpm during the exam. Left Ventricle: The left ventricle is normal in size and wall thickness. There is no thrombus. The ejection fraction is estimated to be 55-60%. There are no focal wall motion abnormalities. Compared to the prior exam, the apical wall motion abnormality is improved. Right Ventricle: The right ventricle is grossly normal size. The right ventricular systolic function is normal. Great Vessels: The IVC is of normal diameter and collapses greater than 50% with a sniff. This suggests a low right atrial pressure of 3 mm Hg. Pericardium/ Pleura There is no pericardial effusion. There is no pleural effusion. MMode/2D Measurements & Calculations LVIDd: 5.0 cm IVC diam: 0.90 cm LVIDs: 3.4 cm FS: 31.4 % IVSd: 0.89 cm LVPWd: 0.85 cm LV vargas. diameter/BSA (cm/m^2): 2.6 LV sys. diameter/BSA (cm/m^2): 1.8 TAPSE: 2.4 cm Reading Physician:03:42 PM
== END ==
PROVIDERS: PCP Family Medicine; Referring Provider Internal Medicine Cardiovascular Disease; Visit Provider Internal Medicine Cardiovascular Disease
DX: I25.5 Ischemic cardiomyopathy (principal)
CPT/HCPCS: 93307

== ENCOUNTER 2021-08-22 10:15 | Outpatient (RCR) | payer OTHER, SELFPAY | END 2021-08-22 12:15 | LOC: CAR 10:15 | PROVIDERS: PCP Family Medicine; Referring Provider Internal Medicine Cardiovascular Disease; Visit Provider Internal Medicine Cardiovascular Disease | DX: I21.4 Non-ST elevation (NSTEMI) myocardial infarction (principal) | CPT/HCPCS: 93798 ==

== ENCOUNTER → 2021-12-20 14:05 | Outpatient (CLI) | payer OTHER, SELFPAY ==
[2021-12-20 15:00] LABS: Add Manual Diff / Slide Review NO; Basophils Absolute Auto 0 /uL (0-100); Basophils Percent Auto 0.5 % (0-2); Eosinophils Absolute Auto 100 /uL (0-450); Eosinophils Percent Auto 1.6 % (2-4); Hematocrit 37.9 % (41-53); Hemoglobin 13.1 g/dL (13.5-17.5); Lymphocytes Absolute Auto 1800 /uL (1100-4500); Lymphocytes Percent Auto 29.5 % (25-40); Mean Corpuscular HGB Conc 34.6 % (30-36); Mean Corpuscular Volume 95.5 fL (80-100); Monocytes Absolute Auto 500 /uL (0-900); Monocytes Percent Auto 8.8 % (3-14); Neutrophils Absolute Auto 3700 /uL (1500-7000); Neutrophils Percent Auto 59.6 % (50-75); Platelet Count 155 X10^3/uL (150-400); Red Blood Cell Count 3.97 X10^6/uL (4.5-5.9); Red Cell Distribution Width 13.1 % (11.6-14.8); White Blood Cell Count 6.2 X10^3/uL (4.5-11.0)
[2021-12-20 15:18] LABS: Alanine Aminotransferase 21 IU/L (<50); Albumin 4.3 g/dL (3.5-5.0); Albumin Globulin Ratio 1.7 (1.0-2.8); Alkaline Phosphatase 76 U/L (38-126); Aspartate Aminotransferase 27 IU/L (17-59); BUN Creatinine Ratio 27.8 (6-22); Bilirubin Total 0.4 mg/dL (0.2-1.3); Blood Urea Nitrogen 20 mg/dL (9-20); Carbon Dioxide 27 mmol/L (22-32); Chloride 105 mmol/L (98-107); Cholesterol 145 mg/dL (140-199); Estimated Glomerular Filt Rate > 60 mL/min (>60); Globulin 2.5 g/dL (1.7-4.1); Glucose 92 mg/dL (80-110); HDL Cholesterol 66 mg/dL (40-60); HEMOLYSIS < 15 (0-50); LDL Cholesterol Calculated 70 mg/dL (<100); Potassium 4.6 mmol/L (3.4-5.1); Sodium 136 mmol/L (137-145); Total Protein 6.8 g/dL (6.3-8.2); Triglycerides 47 mg/dL (35-150)
[2021-12-20 15:46] LABS: Prostate Specific Antigen Scrn 1.25 ng/mL (0.1-4.0)
[2021-12-20 15:52] LABS: Creatinine Urine Random 165.1 mg/dL
[2021-12-20 15:59] LABS: Microalbumi Creatinin Ratio Ur 6.6 ug/mg CR (<30); Microalbumin Urine Random 1.1 mg/dL (0-1.6)
== END ==
PROVIDERS: PCP Family Medicine; Referring Provider Family Medicine; Visit Provider Family Medicine
DX: F32.9 Major depressive disorder, single episode, unspecified (principal); F41.9 Anxiety disorder, unspecified; I25.10 Atherosclerotic heart disease of native coronary artery without angina pectoris; I25.5 Ischemic cardiomyopathy; Z98.61 Coronary angioplasty status; M79.89 Other specified soft tissue disorders; Z12.5 Encounter for screening for malignant neoplasm of prostate
CPT/HCPCS: 36415; 80053; 80061; 82043; 82570; 84550; 85025; G0103

== ENCOUNTER 2021-12-30 16:32 | Emergency (ER) | payer OTHER, SELFPAY ==
[2021-12-30] VITALS (7 sets, daily range): BP systolic 150–152; BP diastolic 77–84; PULSE 60–64; RESP 16–21; TEMP 37.2; O2SAT 94–98; BMI 24.3
--- NOTE | 2021-12-30 16:40 | DI.RAD.S_ITS ---
PROCEDURE: XR CHEST 1V INDICATIONS: trauma TECHNIQUE: One view of the chest was acquired. COMPARISON: [facility], CR, XR CHEST 2V, 06/11/2020, 11:24. FINDINGS: Surgical changes and devices: None. Lungs and pleura: Lungs are clear. No pleural effusions or pneumothorax. Mediastinum: Mediastinal contours appear normal. Heart size is normal. Bones and chest wall: No suspicious bony lesions. Overlying soft tissues appear unremarkable. IMPRESSION: No acute cardiopulmonary pathology. Dictated by: Theo Mayer M.D. on 12/30/2021 at 16:57 Approved by: Theo Mayer M.D. on 12/30/2021 at 16:57
--- NOTE | 2021-12-30 16:41 | DI.CT.S_ITS ---
PROCEDURE: CT CERVICAL SPINE WO CON INDICATIONS: Trauma TECHNIQUE: Noncontrast 3 mm thick sections acquired from the skull base to the T4 level. Sagittal and coronal reformats were then constructed. For radiation dose reduction, the following was used: automated exposure control, adjustment of mA and/or kV according to patient size. COMPARISON: None. FINDINGS: Image quality: Excellent. Bones: No fractures or dislocations. Visualized superior ribs are intact. Soft tissues: Prevertebral soft tissues are normal in thickness. No paravertebral hematomas. No apical pneumothoraces. IMPRESSION: No CT evidence of acute traumatic cervical spine injury. Dictated by: Ambrose Brown M.D. on 12/30/2021 at 17:10 Approved by: Ambrose Brown M.D. on 12/30/2021 at 17:11
--- NOTE | 2021-12-30 16:41 | DI.CT.S_ITS ---
PROCEDURE: CT HEAD/BRAIN WO CON INDICATIONS: Trauma TECHNIQUE: Noncontrast 4.5 mm thick angled axial sections acquired from the foramen magnum to the vertex, with coronal and sagittal reformats. For radiation dose reduction, the following was used: automated exposure control, adjustment of mA and/or kV according to patient size. COMPARISON: None. FINDINGS: Image quality: Excellent. CSF spaces: Basal cisterns are patent. No extra-axial fluid collections. The ventricles are symmetric in size and shape. Brain: No intracranial bleeds or masses. There is cerebral volume loss for age, with resultant ventricular and sulcal prominence. There are periventricular and deep white matter chronic small vessel ischemic changes. There is intracranial internal carotid artery atherosclerosis. Skull and face: Calvarium and visualized facial bones appear intact, without suspicious lesions. Sinuses: Visualized sinuses and mastoids are clear. IMPRESSION: No acute intracranial finding. Dictated by: Ambrose Brown M.D. on 12/30/2021 at 17:09 Approved by: Ambrose Brown M.D. on 12/30/2021 at 17:10
--- NOTE | 2021-12-30 16:41 | DI.CT.S_ITS ---
PROCEDURE: CT CHEST ABD PEL W CON INDICATIONS: Trauma TECHNIQUE: After the administration of intravenous contrast, 5 mm thick sections acquired from the lung apices to the symphysis. 2.5 mm thick coronal and sagittal reformats were acquired. Additional 7 mm thick coronal maximum intensity projection (MIP) reformats acquired through the lungs. Optional 10-minute delayed imaging may be performed from the kidneys to the bladder. For radiation dose reduction, the following was used: automated exposure control, adjustment of mA and/or kV according to patient size. COMPARISON: None. FINDINGS: Image quality: Excellent. CHEST: Lungs: No pulmonary contusions or lacerations. No acute airspace opacities. No pneumothorax or hemothorax. Central and peripheral airways appear patent and normal in caliber. Mediastinum: No mediastinal hematomas. Heart size is normal. No pericardial effusion. Thoracic aorta and pulmonary arteries demonstrate normal size and enhancement. No mediastinal or hilar adenopathy. Esophagus is normal in caliber. No hiatal hernia. Chest wall: No rib fractures. No subcutaneous emphysema. No axillary or supraclavicular adenopathy. ABDOMEN: Solid organs: Innumerable subcentimeter hepatic hypodensities are too small to characterize but likely represent small cysts. Left renal cysts noted. No acute finding of the solid abdominal visceral structures. Peritoneum and bowel: No free fluid or air. Unenhanced bowel loops demonstrate normal wall thickness and caliber. Nodes and vessels: No retroperitoneal or mesenteric adenopathy. Aorta and inferior vena cava are normal in size and enhancement. Miscellaneous: No ventral hernias. PELVIS: Genitourinary: Bladder wall thickness is normal. Miscellaneous: No inguinal hernias or adenopathy. Bones: Pelvic ring and hip joints appear intact. No vertebral compression fractures. IMPRESSION: No CT evidence of acute traumatic injury in the chest, abdomen, or pelvis. Dictated by: Ambrose Brown M.D. on 12/30/2021 at 17:14 Approved by: Ambrose Brown M.D. on 12/30/2021 at 17:18
[2021-12-30 16:49] LABS: Add Manual Diff / Slide Review NO; Basophils Absolute Auto 0 /uL (0-100); Basophils Percent Auto 0.4 % (0-2); Eosinophils Absolute Auto 100 /uL (0-450); Eosinophils Percent Auto 0.9 % (2-4); Hematocrit 39.1 % (41-53); Hemoglobin 13.5 g/dL (13.5-17.5); Lymphocytes Absolute Auto 1800 /uL (1100-4500); Lymphocytes Percent Auto 23.4 % (25-40); Mean Corpuscular HGB Conc 34.5 % (30-36); Mean Corpuscular Volume 95.8 fL (80-100); Monocytes Absolute Auto 600 /uL (0-900); Monocytes Percent Auto 8.3 % (3-14); Neutrophils Absolute Auto 5000 /uL (1500-7000); Platelet Count 151 X10^3/uL (150-400); Red Blood Cell Count 4.08 X10^6/uL (4.5-5.9); Red Cell Distribution Width 13.5 % (11.6-14.8); White Blood Cell Count 7.5 X10^3/uL (4.5-11.0)
[2021-12-30 16:58] LABS: INR 1.1 (0.9-1.3); Prothrombin Time 12.2 SECONDS (10.1-12.7)
[2021-12-30 17:01] LABS: PTT Partial Thromboplastin Tim 30 SECONDS (26-36)
[2021-12-30 17:14] LABS: Alanine Aminotransferase 29 IU/L (<50); Albumin 4.4 g/dL (3.5-5.0); Albumin Globulin Ratio 1.6 (1.0-2.8); Alkaline Phosphatase 70 U/L (38-126); Aspartate Aminotransferase 30 IU/L (17-59); BUN Creatinine Ratio 18.3 (6-22); Bilirubin Total 0.6 mg/dL (0.2-1.3); Blood Urea Nitrogen 13 mg/dL (9-20); Calcium 9.1 mg/dL (8.4-10.2); Carbon Dioxide 25 mmol/L (22-32); Chloride 102 mmol/L (98-107); Creatine Kinase 122 U/L (55-170); Estimated Glomerular Filt Rate > 60 mL/min (>60); Ethanol (ETOH) 86 mg/dL; Globulin 2.8 g/dL (1.7-4.1); Glucose 118 mg/dL (80-110); HEMOLYSIS < 15 (0-50); Lipase 65 U/L (23-300); Potassium 3.6 mmol/L (3.4-5.1); Sodium 137 mmol/L (137-145); Total Protein 7.2 g/dL (6.3-8.2)
[2021-12-30 17:24] LABS: Troponin I < 0.012 ng/mL (0.01-0.034)
[2021-12-30 17:28] LABS: Creatine Kinase MB 1.18 ng/mL (<2.37)
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
[2021-12-30] MEDS: ACETAMINOPHEN 325 MG TABLET 975 MG PO (18:00)
[2021-12-30] MEDS: BACITRACIN OINT 0.9 GM PCKT 6 APPLIC TOP (18:10)
== END 2021-12-30 18:23 | disposition home or self-care (01) ==
PROVIDERS: Emergency Provider Emergency Medicine; PCP Family Medicine
DX: S51.012A Laceration without foreign body of left elbow, initial encounter (principal); S61.412A Laceration without foreign body of left hand, initial encounter; S09.90XA Unspecified injury of head, initial encounter; V29.9XXA Motorcycle rider (driver) (passenger) injured in unspecified traffic accident, initial encounter
CPT/HCPCS: 36415; 70450; 71045; 71260; 72125; 74177; 80053; 80320; 82550; 82553; 83690; 84484; 85025; 85610; 85730; 99285; Q9967

== ENCOUNTER → 2022-05-26 13:50 | Outpatient (CLI) | payer OTHER, SELFPAY ==
[2022-05-26 15:34] LABS: BUN Creatinine Ratio 22.2 (6-22); Blood Urea Nitrogen 16 mg/dL (9-20); Calcium 8.8 mg/dL (8.4-10.2); Carbon Dioxide 30 mmol/L (22-32); Chloride 101 mmol/L (98-107); Estimated Glomerular Filt Rate > 60 mL/min (>60); Glucose 99 mg/dL (80-110); HEMOLYSIS < 15 (0-50); Potassium 3.9 mmol/L (3.4-5.1); Sodium 138 mmol/L (137-145)
== END ==
PROVIDERS: PCP Family Medicine; Referring Provider Internal Medicine Cardiovascular Disease; Visit Provider Internal Medicine Cardiovascular Disease
DX: R00.1 Bradycardia, unspecified (principal)
CPT/HCPCS: 36415; 80048

== ENCOUNTER → 2022-06-14 09:51 | Outpatient (CLI) | payer OTHER, SELFPAY ==
--- NOTE | 2022-06-14 09:52 | DI.RAD.S_ITS ---
PROCEDURE: XR HAND LT MIN 3V INDICATIONS: Hand injury TECHNIQUE: 3 views of the hand(s) acquired. COMPARISON: [facility], CR, FINGER LT, 10/15/2008, 19:39. [facility], CR, XR WRIST LT MIN 3V, 06/14/2022, 10:57. [facility], CR, XR HAND LT MIN 3V, 01/30/2019, 10:51. FINDINGS: Bones: There is a mildly displaced transverse distal radius fracture. There is minimal intra-articular involvement. There is a mildly displaced radial styloid fracture. No additional fractures are detected. Generalized degenerative changes are seen. There is fusion of the proximal interphalangeal joint of the 5th finger. Soft tissues: Soft tissue swelling is seen. IMPRESSION: Transverse distal radius fracture, with mild intra-articular involvement. Mildly displaced ulnar styloid fracture. Generalized degenerative changes are seen. There is fusion of the proximal interphalangeal joint of the 5th finger. Dictated by: Osvaldo Acuña M.D. on 06/14/2022 at 9:41 Approved by: Osvaldo Acuña M.D. on 06/14/2022 at 9:43
--- NOTE | 2022-06-14 09:52 | DI.RAD.S_ITS ---
PROCEDURE: XR WRIST LT MIN 3V INDICATIONS: Wrist Injury TECHNIQUE: 4 views of the wrist were acquired. COMPARISON: [facility], CR, XR HAND LT MIN 3V, 06/14/2022, 10:55. FINDINGS: Bones: There is a transverse fracture of the distal radius. Mild intra-articular involvement can be seen. There is a mildly displaced ulnar styloid fracture. Generalized degenerative changes are seen. Fusion of the proximal interphalangeal joint of the 5th finger is again seen. Scaphoid view: No navicular fractures are seen. Soft tissues: No suspicious soft tissue calcifications. IMPRESSION: Mildly displaced distal radius fracture, with mild intra-articular involvement. There is a mildly displaced ulnar styloid fracture. Dictated by: Osvaldo Acuña M.D. on 06/14/2022 at 9:43 Approved by: Osvaldo Acuña M.D. on 06/14/2022 at 9:44
== END ==
PROVIDERS: PCP Family Medicine; Referring Provider Nurse Practitioner Family; Visit Provider Nurse Practitioner Family
DX: S52.572A Other intraarticular fracture of lower end of left radius, initial encounter for closed fracture (principal); S52.612A Displaced fracture of left ulna styloid process, initial encounter for closed fracture; M24.642 Ankylosis, left hand; M25.532 Pain in left wrist; M79.642 Pain in left hand
CPT/HCPCS: 73110; 73130

== ENCOUNTER → 2023-01-18 11:30 | Outpatient (CLI) | payer OTHER, SELFPAY ==
[2023-01-18 11:58] LABS: Add Manual Diff / Slide Review NO; Basophils Absolute Auto 0 /uL (0-100); Basophils Percent Auto 0.4 % (0-2); Eosinophils Absolute Auto 100 /uL (0-450); Eosinophils Percent Auto 1.1 % (2-4); Hemoglobin 13.6 g/dL (13.5-17.5); Lymphocytes Absolute Auto 1700 /uL (1100-4500); Lymphocytes Percent Auto 21.2 % (25-40); Mean Corpuscular HGB Conc 34.1 % (30-36); Mean Corpuscular Hemoglobin 33.3 PG (26-34); Mean Corpuscular Volume 97.5 fL (80-100); Monocytes Absolute Auto 500 /uL (0-900); Monocytes Percent Auto 6.3 % (3-14); Neutrophils Absolute Auto 5700 /uL (1500-7000); Platelet Count 146 X10^3/uL (150-400); Red Cell Distribution Width 13.7 % (11.6-14.8)
[2023-01-18 12:48] LABS: Alanine Aminotransferase 23 IU/L (<50); Albumin 4.4 g/dL (3.5-5.0); Albumin Globulin Ratio 1.7 (1.0-2.8); Alkaline Phosphatase 68 U/L (38-126); Aspartate Aminotransferase 27 IU/L (17-59); BUN Creatinine Ratio 14.3 (6-22); Bilirubin Total 0.8 mg/dL (0.2-1.3); Blood Urea Nitrogen 10 mg/dL (9-20); Calcium 9.7 mg/dL (8.4-10.2); Carbon Dioxide 28 mmol/L (22-32); Chloride 103 mmol/L (98-107); Cholesterol 124 mg/dL (140-199); Estimated Glomerular Filt Rate > 60 mL/min (>60); Globulin 2.6 g/dL (1.7-4.1); Glucose 88 mg/dL (80-110); HDL Cholesterol 70 mg/dL (40-60); HEMOLYSIS < 15 (0-50); LDL Cholesterol Calculated 44 mg/dL (<100); Potassium 4.4 mmol/L (3.4-5.1); Sodium 137 mmol/L (137-145); Triglycerides 49 mg/dL (35-150)
[2023-01-18 13:15] LABS: TSH w/ Reflex to FT4 0.76 uIU/mL (0.47-4.68)
[2023-01-18 15:43] LABS: Creatinine Urine Random 134.4 mg/dL
[2023-01-18 15:44] LABS: Microalbumi Creatinin Ratio Ur 5.2 ug/mg CR (<30); Microalbumin Urine Random 0.7 mg/dL (0-1.6)
== END ==
PROVIDERS: PCP Family Medicine; Referring Provider Family Medicine; Visit Provider Family Medicine
DX: F10.929 Alcohol use, unspecified with intoxication, unspecified (principal); F33.9 Major depressive disorder, recurrent, unspecified; F41.9 Anxiety disorder, unspecified; I25.10 Atherosclerotic heart disease of native coronary artery without angina pectoris; I25.5 Ischemic cardiomyopathy
CPT/HCPCS: 36415; 80053; 80061; 82043; 82570; 84443; 85025

== ENCOUNTER → 2024-03-04 11:33 | Outpatient (CLI) | payer OTHER, SELFPAY ==
[2024-03-04 12:39] LABS: Add Manual Diff / Slide Review NO; Basophils Absolute Auto 0 /uL (0-100); Basophils Percent Auto 0.5 % (0-2); Eosinophils Absolute Auto 100 /uL (0-450); Hematocrit 43.1 % (41-53); Hemoglobin 14.5 g/dL (13.5-17.5); Lymphocytes Absolute Auto 2000 /uL (1100-4500); Lymphocytes Percent Auto 32.8 % (25-40); Mean Corpuscular HGB Conc 33.6 % (30-36); Mean Corpuscular Volume 98.1 fL (80-100); Monocytes Absolute Auto 400 /uL (0-900); Monocytes Percent Auto 6.9 % (3-14); Neutrophils Absolute Auto 3600 /uL (1500-7000); Neutrophils Percent Auto 58.8 % (50-75); Platelet Count 185 X10^3/uL (150-400); Red Blood Cell Count 4.39 X10^6/uL (4.5-5.9); Red Cell Distribution Width 13.5 % (11.6-14.8); White Blood Cell Count 6.1 X10^3/uL (4.5-11.0)
[2024-03-04 13:15] LABS: Alanine Aminotransferase 32 IU/L (<50); Albumin 4.6 g/dL (3.5-5.0); Albumin Globulin Ratio 1.8 (1.0-2.8); Alkaline Phosphatase 68 U/L (38-126); Aspartate Aminotransferase 27 IU/L (17-59); BUN Creatinine Ratio 15.4 (6-22); Bilirubin Total 0.9 mg/dL (0.2-1.3); Blood Urea Nitrogen 12 mg/dL (9-20); Calcium 9.9 mg/dL (8.4-10.2); Carbon Dioxide 28 mmol/L (22-32); Chloride 104 mmol/L (98-107); Cholesterol 154 mg/dL (140-199); Estimated Glomerular Filt Rate > 60 mL/min (>60); Globulin 2.5 g/dL (1.7-4.1); Glucose 101 mg/dL (80-110); HDL Cholesterol 60 mg/dL (40-60); HEMOLYSIS < 15 (0-50); LDL Cholesterol Calculated 79 mg/dL (<100); Potassium 4.5 mmol/L (3.4-5.1); Sodium 138 mmol/L (137-145); Total Protein 7.1 g/dL (6.3-8.2); Triglycerides 76 mg/dL (35-150)
[2024-03-04 13:38] LABS: TSH w/ Reflex to FT4 1.56 uIU/mL (0.47-4.68)
[2024-03-04 13:40] LABS: Prostate Specific Antigen 2.33 ng/mL (0.10-4.00)
[2024-03-05 04:09] LABS: Apolipoprotein B 71 mg/dL (<90)
== END ==
PROVIDERS: PCP Family Medicine; Referring Provider Family Medicine; Visit Provider Family Medicine
DX: I10 Essential (primary) hypertension (principal); E78.5 Hyperlipidemia, unspecified
CPT/HCPCS: 36415; 80053; 80061; 82172; 84153; 84443; 85025

== ENCOUNTER 2024-03-05 23:47 | Emergency (ER) | payer OTHER, SELFPAY ==
[2024-03-05 23:51] VITALS: BP 90/59; PULSE 81; RESP 18; TEMP 36.1; O2SAT 95; BMI 20.7
--- NOTE | 2024-03-05 23:58 | DI.RAD.S_ITS ---
PROCEDURE: XR WRIST RT MIN 3V INDICATIONS: pain to right wrist TECHNIQUE: 4 views of the wrist were acquired. COMPARISON: None. FINDINGS: Bones: No acute fractures or dislocations. No suspicious bony lesions. Moderate osteoarthrosis. Soft tissues: No suspicious soft tissue calcifications. Soft tissue edema is seen surrounding the wrist. IMPRESSION: Nonspecific soft tissue edema. No acute osseous abnormality. If there is continued clinical concern or persistent symptoms, repeat radiographs or cross-sectional imaging (e.g. CT, MRI) may be helpful for further evaluation. Approved by: Laci Holcomb M.D. on 03/06/2024 at 0:41
[2024-03-06] MEDS: ACETAMINOPHEN 325 MG TABLET 650 MG PO (01:26)
--- NOTE | 2024-03-06 01:28 | ED.UPPEXIN ---
HPI - Extremity Injury (Upper) General Chief Complaint: Extremity Injury, Upper Stated Complaint: possible broken rt wrist Time Seen by Provider: 03/06/24 01:26 Source: patient Mode of arrival: Ambulatory History of Present Illness HPI narrative: 73-year-old male fell backwards while descending stairs, with right wrist pain this evening. No other injuries. He denies pain to the fingers. Denies pain to the right forearm, elbow, upper arm, shoulder. Chronic neck pain not increased after the fall. He did not hit his head, has no headache pain. Does not feel nauseated, no vomiting. No truncal injuries. No chest abdomen and pelvis injuries. No lower extremity problems. No injury known to the left upper extremity. Related Data Home Medications Medication Instructions Recorded Confirmed atorvastatin 40 mg tablet (Lipitor) 40 mg PO QPM 03/06/23 03/06/23 lisinopril 2.5 mg tablet 2.5 mg PO DAILY 03/06/23 03/06/23 metoprolol succinate 25 mg 12.5 mg PO DAILY 03/06/23 03/06/23 tablet,extended release 24 hr (Toprol XL) Previous Rx's Medication Instructions Recorded citalopram 40 mg tablet See Rx Instructions .Route 03/06/23 .COMPLEX #90 tabs hydroxyzine HCl 25 mg tablet 25 mg PO BID PRN anxiety #90 tabs 01/24/24 temazepam 15 mg capsule 30 mg (2 x 15 mg) PO BEDTIME PRN 01/24/24 sleep #60 caps Allergies Allergy/AdvReac Type Severity Reaction Status Date / Time No Known Drug Allergies Allergy Verified 03/06/23 11:18 Review of Systems Review of Systems Narrative: see HPI Patient History Medical History (Updated 03/06/24 @ 01:43 by Juan M Branham MD) Alcohol intoxication Ischemic cardiomyopathy CAD (coronary artery disease) GERD (gastroesophageal reflux disease) Acute sinusitis Anxiety Surgical History No pertinent past surgical history Family History Brother Age: 61 Throat cancer Father Cancer Heart disease Mother Age: 97 Hypertension Stroke UTI (urinary tract infection) Social History Smoking Status: Never smoker Smoking Status: Never smoker alcohol intake frequency: 3 or more drinks per day Substance Use Type: does not use Exam Narrative Exam Narrative: GENERAL: Well-developed patient, in mild distress. HEAD: Atraumatic. Normocephalic. EYES: Pupils equal round and reactive. Extraocular motions intact. No scleral icterus. No injection or drainage. ENT: Nose without bleeding, purulent drainage. Throat without erythema, tonsillar hypertrophy or exudate. Airway patent. NECK: Trachea midline. Non tender CARDIOVASCULAR: Regular rate and rhythm without murmurs, gallops, or rubs. RESPIRATORY: Clear to auscultation. Breath sounds equal bilaterally. No wheezes, rales, or rhonchi. GASTROINTESTINAL: Abdomen soft, non-tender, nondistended. EXTREMITIES: Tenderness with swelling to the distal wrist, including at the snuffbox on the right side, no abrasions. No gross deformities. No gross finger deformities. No tenderness proximal right forearm, elbow, upper arm, shoulder. BACK: Nontender without deformity or crepitance. No flank tenderness. NEURO: AOx3. Motor functions grossly nonfocal SKIN: No rash or erythema of visible areas Initial Vital Signs Initial Vital Signs: Vital Signs Temperature 97 F L 03/05/24 23:51 Pulse Rate 81 03/05/24 23:51 Respiratory Rate 18 03/05/24 23:51 Blood Pressure 90/59 L 03/05/24 23:51 Pulse Oximetry 95 03/05/24 23:51 Oxygen Delivery Method Room Air 03/05/24 23:51 Course Orders Ordered: ED Orders 03/05/24 23:58 XR wrist RT min 3V Stat Discontinued Medications Acetaminophen (Acetaminophen 325 Mg Tablet) 650 mg PO Q6H PRN PRN Reason: Fever/Mild Pain (1-3) Last Admin: 03/06/24 01:26 Dose: 650 mg Documented By: Tramadol HCl (Tramadol 50 Mg Prepack) 1 bottle MISC DIRECTED ONE Stop: 03/06/24 01:40 Last Admin: 03/06/24 01:55 Dose: 1 bottle Documented By: Vital Signs Vital signs: Vital Signs - 8 hr 03/05/24 23:51 03/06/24 02:21 Temperature 97 F L Pulse Rate 81 82 Respiratory Rate 18 Blood Pressure 90/59 L 107/64 Pulse Oximetry 95 97 Oxygen Delivery Method Room Air MDM - Extremity Injury (Upper) Imaging Data Extremity x-ray #1: Radiologist's Impression: Close Wrist X-Ray (Signed) Laci Holcomb - 03/05/24 Launch?[address] [address] XRay Report Signed Patient: Taurus Stanford MR#: [id number] : 1950 Acct:[id number] Age/Sex: 73 / M Date of Service: 03/05/24 Loc: ED Accession Number: [id number] Procedure: XR wrist RT min 3V Ordering Provider: Juan M Branham MD PROCEDURE: XR WRIST RT MIN 3V INDICATIONS: pain to right wrist TECHNIQUE: 4 views of the wrist were acquired. COMPARISON: None. FINDINGS: Bones: No acute fractures or dislocations. No suspicious bony lesions. Moderate osteoarthrosis. Soft tissues: No suspicious soft tissue calcifications. Soft tissue edema is seen surrounding the wrist. IMPRESSION: Nonspecific soft tissue edema. No acute osseous abnormality. If there is continued clinical concern or persistent symptoms, repeat radiographs or cross-sectional imaging (e.g. CT, MRI) may be helpful for further evaluation. Approved by: Laci Holcomb M.D. on 03/06/2024 at 0:41 MDM Narrative Medical decision making narrative: Fall with right wrist area discomfort, some snuffbox area tenderness. X-ray wrist without obvious fracture, see radiology report. Placed in can holding like wrist splint. Follow up with Orthopedic surgery, concern for occult scaphoid injury, further imaging if persistent pain in the anatomic snuffbox. Fbij-den-aljofgw pain medications to use as needed. Return precautions discussed. Discharge Plan Departure Patient Disposition: Home Clinical Impression: Right wrist sprain, Fall Instructions: DI for Wrist Sprain Activity Restrictions/Additional Instructions: Fall from stair, backwards direction fall, with subsequent right wrist pain, dressed in splint Coban wrap. Tenderness at right distal wrist, including at the anatomic snuffbox where the scaphoid bone is. X-rays read as negative from Radiology. Splint in can holding like position to protect the scaphoid bone. Recheck the examination in follow up with Orthopedic surgery or your regular doctor. If there is persistent tenderness in that area sometimes further investigation of the scaphoid is needed, such as the additional views and x-ray, or sometimes MRI or bone scanning, to evaluate for subtle fracture. Scaphoid fractures can be difficult to heal if present. Take Tylenol and or Motrin as needed for pain control. Home pack tramadol pain medication to use if needed. Follow up with Orthopedic surgery, contact information provided. Return to this/nearest emergency department for any change worsening symptoms or any concerns prior Prescriptions: No Action hydroxyzine HCl 25 mg tablet 25 mg PO BID PRN (Reason: anxiety) Qty: 90 1RF temazepam 15 mg capsule 30 mg PO BEDTIME PRN (Reason: sleep) Qty: 60 1RF citalopram 40 mg tablet See Rx Instructions .ROUTE .COMPLEX Qty: 90 3RF Dose Instruction: take 1 tablet by mouth once daily Rx Instructions: take 1 tablet by mouth once daily atorvastatin [Lipitor] 40 mg tablet 40 mg PO QPM lisinopril 2.5 mg tablet 2.5 mg PO DAILY metoprolol succinate [Toprol XL] 25 mg tablet extended release 24 hr 12.5 mg PO DAILY Referrals: Magen Arellano MD [Primary Care Provider] - Ramos Razo MD [Physician] - Stand Alone Forms: Patient Portal/API
[2024-03-06] MEDS: TRAMADOL 50 MG PREPACK 1 BOTTLE MISC (01:55)
[2024-03-06 02:21] VITALS: BP 107/64; PULSE 82; O2SAT 97
== END 2024-03-06 02:28 | disposition home or self-care (01) ==
PROVIDERS: Emergency Provider Emergency Medicine; PCP Family Medicine
DX: S63.501A Unspecified sprain of right wrist, initial encounter (principal); W10.9XXA Fall (on) (from) unspecified stairs and steps, initial encounter
CPT/HCPCS: 29125; 73110; 99283

== ENCOUNTER 2025-01-20 11:09 | Emergency (ER) | payer OTHER, SELFPAY ==
[2025-01-20] VITALS (11 sets, daily range): BP systolic 130–216; BP diastolic 58–105; PULSE 53–71; RESP 22; TEMP 36.6; O2SAT 98–100; BMI 24.3
--- NOTE | 2025-01-20 11:16 | ED.BACK ---
HPI - Back Pain/Injury General Chief Complaint: Abdominal Pain Stated Complaint: Sharp pain on lower left side and stomach today Time Seen by Provider: 01/20/25 11:16 History of Present Illness HPI Narrative: Patient is a 74-year-old male with a past medical history of hyperlipidemia, hypertension, comes into the ED from home for evaluation of left-sided abdominal pain and flank pain started today. Does endorse nausea and vomiting secondary to these symptoms, no radiation nothing making it better or worse. States that he was able to have a bowel movement yesterday which was loose, was able to urinate without any other issues. He denies any other symptoms such as headache visual disturbances chest pain shortness breath fever chills or any other GI/ symptoms at this time. Related Data Home Medications ?Medication ?Instructions ?Recorded ?Confirmed atorvastatin 40 mg tablet (Lipitor) 40 mg PO QPM 03/06/23 03/10/24 lisinopril 2.5 mg tablet 2.5 mg PO DAILY 03/06/23 03/10/24 metoprolol succinate 25 mg 12.5 mg PO DAILY 03/06/23 03/10/24 tablet,extended release 24 hr (Toprol XL) Previous Rx's ?Medication ?Instructions ?Recorded citalopram 40 mg tablet See Rx Instructions .Route 05/01/24 .COMPLEX #90 tabs hydroxyzine HCl 25 mg tablet 25 mg PO BID PRN anxiety #90 tabs 08/19/24 temazepam 15 mg capsule 30 mg (2 x 15 mg) PO BEDTIME PRN 12/09/24 sleep #60 caps cephalexin 500 mg capsule 500 mg PO TID 7 days #21 caps 01/20/25 ondansetron 4 mg disintegrating 4 mg PO Q8H PRN nausea and 01/20/25 tablet vomiting 1 week #21 tabs oxycodone-acetaminophen 5 mg-325 1 tab PO Q8H PRN pain 3 days #9 01/20/25 mg tablet (Percocet) tabs tamsulosin 0.4 mg capsule (Flomax) 0.4 mg PO DAILY 1 week #7 caps 01/20/25 Allergies Allergy/AdvReac Type Severity Reaction Status Date / Time No Known Drug Allergies Allergy Verified 03/10/24 14:27 Review of Systems Review of Systems Narrative: General: Denies fever, chills, weight loss HEENT: Denies headache, eye drainage, eye irritation, head trauma, sore throat, voice change Cardiovascular: Denies any chest pain, palpitations, tachycardia Respiratory: Denies any shortness of breath, cough, wheeze, stridor GI/: Left lower quadrant abdominal pain and left flank, nausea, vomiting, diarrhea, denies bright red blood per rectum, melanotic stools, urinary frequency, urinary retention, dysuria, hematuria MSK: Denies any joint pain, muscle pains, swelling Skin: Denies any rashes, lesions, discoloration Neuro: Denies any headache, lightheadedness, dizziness, fainting, weakness Psych: Denies SI/HI Patient History Medical History (Updated 01/20/25 @ 13:18 by Carlos Waldrop DO) Alcohol intoxication Ischemic cardiomyopathy CAD (coronary artery disease) GERD (gastroesophageal reflux disease) Acute sinusitis Anxiety Surgical History No pertinent past surgical history Family History Brother Age: 62 Throat cancer Father Cancer Heart disease Mother Age: 98 Hypertension Stroke UTI (urinary tract infection) Social History Smoking Status: Never smoker alcohol intake frequency: 3 or more drinks per day Exam Narrative Exam Narrative: General: Cooperative, well-developed, not in acute distress HEENT: Normocephalic, atraumatic, PERRLA, normal sclera, eyelids normal Neck: Active full range of motion, atraumatic Chest: Normal to inspection, negative crepitus, no overlying erythema ecchymosis Respiratory: Normal respiratory effort, not in acute respiratory distress, clear to auscultation bilaterally negative cough, wheeze, tachypnea, rhonchi, rales Cardiology: Regular rate rhythm negative gallop, murmur, rubs GI/: No reproducible tenderness to palpation, soft, non rigid, normal to inspection, exam deferred MSK: Full active range of motion in all 4 extremities, atraumatic, no tenderness to palpation of any bony prominences Skin: No rashes or lesions noted Neuro: Alert awake oriented x3, moves all 4 extremities spontaneously, cranial nerves intact, able to answer all questions appropriately follows commands appropriately Psych: Cooperative, negative suicidal or homicidal ideations Initial Vital Signs Initial Vital Signs: Vital Signs Temperature 98 F 01/20/25 11:19 Pulse Rate 55 L 01/20/25 11:19 Respiratory Rate 22 01/20/25 11:19 Blood Pressure 206/95 H 01/20/25 11:19 Pulse Oximetry 100 01/20/25 11:19 Oxygen Delivery Method Room Air 01/20/25 11:19 Course Orders Ordered: ED Orders 01/20/25 11:14 EKG-12 Lead Stat 01/20/25 11:19 CT abdomen pelvis w con Stat 01/20/25 11:28 Complete Blood Count AUTO DIFF Stat Comprehensive Metabolic Panel Stat Lactate (Lactic Acid) Stat Lipase Stat MAG [Magnesium] Stat 01/20/25 13:07 Urinalysis and Microscopic Stat Ondansetron HCl (Ondansetron 4 Mg/2 Ml Inj) 4 mg IV NOW PRN PRN Reason: Nausea And Vomiting Ondansetron HCl (Ondansetron 4 Mg Odt) 4 mg PO NOW PRN PRN Reason: Nausea And Vomiting Discontinued Medications Cephalexin HCl (Cephalexin 250 Mg Capsule) 500 mg PO NOW ONE Stop: 01/20/25 13:14 Sodium Chloride (Normal Saline 0.9%) 1,000 mls @ 1,000 mls/hr IV BOLUS ONE Stop: 01/20/25 12:17 Last Infusion: 01/20/25 12:46 Dose: Infused Documented By: Admin: 01/20/25 11:33 Dose: 1,000 mls/hr Documented By: ES Ketorolac Tromethamine (Ketorolac 30 Mg/Ml Vial) 30 mg IV NOW ONE Stop: 01/20/25 12:53 Last Admin: 01/20/25 13:10 Dose: 30 mg Documented By: ES Morphine Sulfate (Morphine 4 Mg/Ml Inj) 4 mg IV NOW ONE Stop: 01/20/25 11:19 Last Admin: 01/20/25 11:33 Dose: 4 mg Documented By: ES Morphine Sulfate (Morphine 4 Mg/Ml Inj) 4 mg IV NOW ONE Stop: 01/20/25 12:28 Last Admin: 01/20/25 12:31 Dose: 4 mg Documented By: ES Ondansetron HCl (Ondansetron 4 Mg/2 Ml Inj) 4 mg IV NOW ONE Stop: 01/20/25 11:19 Last Admin: 01/20/25 11:33 Dose: 4 mg Documented By: MARNIE Tamsulosin HCl (Tamsulosin 0.4 Mg Capsule) 0.4 mg PO NOW ONE Stop: 01/20/25 13:14 Vital Signs Vital signs: Vital Signs - 8 hr 01/20/25 11:19 Temperature 98 F Pulse Rate 55 L Respiratory Rate 22 Blood Pressure 206/95 H Pulse Oximetry 100 Oxygen Delivery Method Room Air MDM - Back Pain/Injury Lab Data 01/20/25 11:28 01/20/25 11:28 Labs: Lab Results 01/20/25 01/20/25 Range/Units 11:28 13:07 WBC 9.2 (4.5-11.0) X10^3/uL RBC 4.31 L (4.5-5.9) X10^6/uL Hgb 14.3 (13.5-17.5) g/dL Hct 41.5 (41-53) % MCV 96.3 (80-100) fL MCH 33.2 (26-34) PG MCHC 34.4 (30-36) % RDW 13.4 (11.6-14.8) % Plt Count 168 (150-400) X10^3/uL Neut % (Auto) 87.9 H (50-75) % Lymph % (Auto) 8.3 L (25-40) % [place] % (Auto) 3.1 (3-14) % Eos % (Auto) 0.2 L (2-4) % Baso % (Auto) 0.5 (0-2) % Neut # (Auto) 8100 H (1735-8893) /uL Lymph # (Auto) 800 L (8303-7275) /uL [place] # (Auto) 300 (0-900) /uL Eos # (Auto) 0 (0-450) /uL Baso # (Auto) 100 (0-100) /uL Sodium 137 (137-145) mmol/L Potassium 3.7 (3.4-5.1) mmol/L Chloride 104 (98-107) mmol/L Carbon Dioxide 19 L (22-32) mmol/L BUN 16 (9-20) mg/dL Creatinine 0.72 (0.66-1.25) mg/dL Estimated GFR > 60 (>60) mL/min BUN/Creatinine Ratio 22.2 H (6-22) Glucose 172 H (70-99) mg/dL Lactate 3.4 H (0.7-2.1) mmol/L Calcium 9.6 (8.4-10.2) mg/dL Magnesium 1.5 L (1.6-2.3) mg/dL Total Bilirubin 1.3 (0.2-1.3) mg/dL AST 36 (17-59) IU/L ALT 33 (<50) IU/L Alkaline Phosphatase 84 (38-126) U/L Total Protein 7.3 (6.3-8.2) g/dL Albumin 4.7 (3.5-5.0) g/dL Globulin 2.6 (1.7-4.1) g/dL Albumin/Globulin Ratio 1.8 (1.0-2.8) Lipase 87 (23-300) U/L Urine Color Yellow Urine Appearance Clear Urine pH 6.0 (4.5-8.0) Ur Specific [place] <=1.005 (1.000-1.035) Urine Protein Negative (Negative) Urine Glucose (UA) Negative (Negative) g/dL Urine Ketones 2+ H (NEGATIVE) Urine Occult Blood 3+ H (Negative) Urine Nitrate Negative (Negative) Urine Bilirubin Negative (NEGATIVE) Urine Urobilinogen 0.2 (0.2) E.U./dL Ur Leukocyte Esterase Negative (NEGATIVE) Urine RBC 10-30/hpf H (0-5/HPF) Urine WBC None seen (0-5/HPF) Ur Squamous Epith Cells None seen (0-5/HPF) Urine Bacteria None seen (None) Ur Culture Indicated? Cult not indicated Vol Urine Centrifuged 10ml (spun) ECG Data Interpretation: EKG interpreted by ED physician sinus bradycardia 52 beats per minute QTC 429, normal axis QRS MO interval within normal limits, no STEMI MDM Narrative Medical decision making narrative: Patient is a 74-year-old male with a past medical history of hyperlipidemia hypertension presenting from the emergency department from home for evaluation of left abdominal and left flank pain ongoing persistent since this morning. No radiation, nothing making it better or worse. Had 1 episode of loose stool last night otherwise no other GI/ symptoms at this time. The patient had lab work imaging urinalysis performed here in the emergency department. EKG nonischemic in nature. Patient without any leukocytosis, creatinine normal, urinalysis without any WBC or signs of infection, CT scan showing a 6 mm UPJ stone, mild hydro, patient was able to tolerate p.o. here symptoms controlled after administration of IV medication, patient will be sent home with symptomatic relief and instructed to follow up with Urology in outpatient setting. Positive strict return precautions given understands and agrees to being discharged home with outpatient follow up. Patient was noted to be hypertensive however this is secondary to pain and the fact that he did not take his oral antihypertensives for home. He does not have any headache visual disturbances, he feels comfortable being discharged home with his oral medications. Discharge Plan Departure Patient Disposition: Home Clinical Impression: Urolithiasis Instructions: DI for Kidney Stones Activity Restrictions/Additional Instructions: Please return immediately to the emergency department if your pain is uncontrolled with the medications or new can not tolerate the medications She return immediately to the emergency department if you start developing a fever Please follow up with Urology and your primary care doctor Please read the discharge instructions sheet carefully and bring all papers to all doctor follow-up visits, as it may contain information that your doctor may want to see. Disease processes change and evolve, if your symptoms worsen or if you develop any new symptoms that are concerning to you please return for evaluation. Your evaluation today does not show any evidence of any life-threatening/serious illnesses requiring admission to the hospital or surgery. Please follow-up with your doctor for re-evaluation in approximately 1 day. Seek immediate medical attention for any worrisome symptoms. *If you do not have a primary care provider please contact the [facility] Resource line at [phone]. They will ask some questions about your medical history and help get you set up with a doctor in the community. Prescriptions: New cephalexin 500 mg capsule 500 mg PO TID 7 Days Qty: 21 0RF oxycodone-acetaminophen [Percocet] 5-325 mg tablet 1 tab PO Q8H PRN (Reason: pain) 3 Days Qty: 9 0RF tamsulosin [Flomax] 0.4 mg capsule 0.4 mg PO DAILY 7 Days Qty: 7 0RF ondansetron 4 mg tablet,disintegrating 4 mg PO Q8H PRN (Reason: nausea and vomiting) 7 Days Qty: 21 0RF No Action citalopram 40 mg tablet See Rx Instructions .ROUTE .COMPLEX Qty: 90 1RF Dose Instruction: take 1 tablet by mouth once daily Rx Instructions: take 1 tablet by mouth once daily hydroxyzine HCl 25 mg tablet 25 mg PO BID PRN (Reason: anxiety) Qty: 90 1RF temazepam 15 mg capsule 30 mg PO BEDTIME PRN (Reason: sleep) Qty: 60 0RF atorvastatin [Lipitor] 40 mg tablet 40 mg PO QPM lisinopril 2.5 mg tablet 2.5 mg PO DAILY metoprolol succinate [Toprol XL] 25 mg tablet extended release 24 hr 12.5 mg PO DAILY Referrals: Magen Arellano MD [Primary Care Provider, Family Practice] Stand Alone Forms: Patient Portal/API
--- NOTE | 2025-01-20 11:19 | DI.CT.S_ITS ---
PROCEDURE: CT ABDOMEN PELVIS W CON INDICATIONS: Left lower quadrant and left flank pain TECHNIQUE: After the administration of intravenous contrast, axial sections acquired from the lung bases to the pubic symphysis. Coronal and sagittal reformats were performed. For radiation dose reduction, the following was used: automated exposure control, adjustment of mA and/or kV according to patient size. COMPARISON: [facility], CT, CT CHEST ABD PEL W CON, 12/30/2021, 16:47. FINDINGS: Image quality: Diagnostic. Lower Chest: Benign calcified granuloma in the right lower lobe. No consolidation. ABDOMEN: Liver: No solid mass. Numerous subcentimeter hypoattenuating lesions throughout the liver, not significantly changed and likely benign. Gallbladder: No radiopaque gallstones or wall thickening. Biliary ducts: No biliary dilation. Pancreas: No ductal dilation. Spleen: Size is within normal limits. Adrenal Glands: No adrenal nodules. Kidneys and Ureters: No hydronephrosis. No solid mass. No complex renal cystic lesion which requires follow up. Multiple fluid attenuation right renal cysts, some which have thin peripheral calcifications. A 6 mm calculus (1400 Hounsfield units) is seen in the proximal left ureter at the ureteropelvic junction with mild left hydronephrosis. Stomach and Bowel: Multiple diverticula are seen in the colon without acute inflammatory changes. Transverse colon is nondistended. Status post appendectomy. Small bowel loops are unremarkable. Peritoneum: No abnormal intraperitoneal fluid. No free air. Ventral Wall: No significant ventral hernia. Abdominal Nodes: No retroperitoneal or mesenteric adenopathy by size criteria. Vessels: Aorta and inferior vena cava are normal in size. PELVIS: Pelvic Organs: Prostate is mildly enlarged. Bladder: Mild circumferential bladder wall thickening that is slightly more prominent at the bladder base. Pelvic Nodes: No enlarged lymph nodes. Miscellaneous: No inguinal hernias are seen. Bones: No aggressive osseous abnormality. IMPRESSION: 1. Left proximal ureteral 6 mm calculus at the ureteropelvic junction with mild left hydronephrosis. 2. Mild prostatomegaly. 3. Mild circumferential bladder wall thickening is most likely related to chronic outlet obstruction although cystitis and other causes of wall thickening are not excluded. 4. Stable renal and hepatic cysts. 5. Colonic diverticulosis. Approved by: Laci Holcomb M.D. on 01/20/2025 at 12:35
--- NOTE | 2025-01-20 11:20 | EKG_ITS ---
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
[2025-01-20] MEDS: SODIUM CHLORIDE 0.9% 1,000 ML 1000 ML IV (11:33)
[2025-01-20] MEDS: MORPHINE 4 MG/ML INJ IV ×2 (11:33→12:31)
[2025-01-20] MEDS: ONDANSETRON 4 MG/2 ML INJ IV (11:33)
[2025-01-20 11:35] LABS: Add Manual Diff / Slide Review NO; Hematocrit 41.5 % (41-53); Hemoglobin 14.3 g/dL (13.5-17.5); Lymphocytes Absolute Auto 800 /uL (1100-4500); Mean Corpuscular HGB Conc 34.4 % (30-36); Mean Corpuscular Hemoglobin 33.2 PG (26-34); Mean Corpuscular Volume 96.3 fL (80-100); Platelet Count 168 X10^3/uL (150-400)
[2025-01-20 11:53] LABS: Alanine Aminotransferase 33 IU/L (<50); Albumin 4.7 g/dL (3.5-5.0); Albumin Globulin Ratio 1.8 (1.0-2.8); Alkaline Phosphatase 84 U/L (38-126); Blood Urea Nitrogen 16 mg/dL (9-20); Calcium 9.6 mg/dL (8.4-10.2); Carbon Dioxide 19 mmol/L (22-32); Chloride 104 mmol/L (98-107); Estimated Glomerular Filt Rate > 60 mL/min (>60); Globulin 2.6 g/dL (1.7-4.1); Glucose 172 mg/dL (70-99); HEMOLYSIS < 15 (0-50); Lactate (Lactic Acid) 3.4 mmol/L (0.7-2.1); Lipase 87 U/L (23-300); Magnesium 1.5 mg/dL (1.6-2.3); Potassium 3.7 mmol/L (3.4-5.1); Sodium 137 mmol/L (137-145); Total Protein 7.3 g/dL (6.3-8.2)
[2025-01-20 13:08] LABS: Reflexed Lactate in 2 Hours Y
[2025-01-20 13:10] LABS: Appearance Urine UA CLEAR; Bilirubin Urine UA NEGATIVE (NEGATIVE); Color Urine UA YELLOW; Glucose Urine UA NEGATIVE (Negative); Ketones Urine UA 2+ (NEGATIVE); Leukocyte Esterase Urine UA NEGATIVE (NEGATIVE); Nitrite Urine UA NEGATIVE (Negative); Occult Blood Urine UA 3+ (Negative); Protein Urine UA NEGATIVE (Negative); Specific Gravity Urine UA <=1.005 (1.000-1.035); Urobilinogen Urine UA 0.2 E.U./dL (0.2); pH Urine UA 6.0 (4.5-8.0)
[2025-01-20] MEDS: KETOROLAC 30 MG/ML VIAL IV (13:10)
[2025-01-20 13:12] LABS: Culture Indicated Urine Cult Not Indicated
[2025-01-20] MEDS: TAMSULOSIN 0.4 MG CAPSULE PO (13:20)
== END 2025-01-20 13:34 | disposition home or self-care (01) ==
PROVIDERS: Emergency Provider Student in an Organized Health Care Education/Training Program; PCP Family Medicine
DX: N20.0 Calculus of kidney (principal)
CPT/HCPCS: 36415; 74177; 80053; 81001; 83605; 83690; 83735; 85025; 93005; 96361; 96374; 96375; 96376; 99284; J1885; J2270; J2405; Q9967

== ENCOUNTER → 2025-01-22 10:38 | Outpatient (CLI) | payer OTHER, SELFPAY | PROVIDERS: PCP Family Medicine; Referring Provider Family Medicine; Visit Provider Family Medicine | DX: N20.9 Urinary calculus, unspecified (principal) | CPT/HCPCS: 82365 ==

== ENCOUNTER 2025-01-27 14:36 | Emergency (ER) | payer OTHER, SELFPAY ==
[2025-01-27] VITALS (7 sets, daily range): BP systolic 115–195; BP diastolic 67–82; PULSE 61–74; RESP 16; TEMP 36.8; O2SAT 92–100; BMI 23.6
--- NOTE | 2025-01-27 15:41 | ED_ITS ---
HPI - General Adult General Chief complaint: Urogenital-Male Stated complaint: kidney stone- here last week Time Seen by Provider: 01/27/25 15:31 Source: patient Mode of arrival: Ambulatory History of Present Illness HPI narrative: 74-year-old gentleman with a history of hypertension, hyperlipidemia, BPH seen in the emergency department 01/20 with left-sided flank pain with CT scan evaluation showing CT scan showing a 6 mm UPJ stone, mild hydro nephrosis. He was subsequently discharged home after pain was controlled, instructed to follow up with urology. Patient does have a follow up appointment on April 17 and is on cancellation list. Today began having increasing left-sided abdominal pain similar to previous. No fevers, chills, vomiting, nausea, chest pain, palpitations. He is still voiding and having regular stools. Was using his tamsulosin as well as hydrocodone at home and pain is not controlled with the hydrocodone alone. Comes in for additional evaluation Related Data Home Medications ?Medication ?Instructions ?Recorded ?Confirmed atorvastatin 40 mg tablet (Lipitor) 40 mg PO QPM 03/0601/27/25 lisinopril 2.5 mg tablet 2.5 mg PO DAILY 03/06/23 metoprolol succinate 25 mg 12.5 mg PO DAILY 03/06/23 0 01/27/25 tablet,extended release 24 hr (Toprol XL) Previous Rx's ?Medication ?Instructions ?Recorded citalopram 40 mg tablet See Rx Instructions .Route 1 07/02/23 .COMPLEX #90 tabs hydroxyzine HCl 25 mg tablet 25 mg PO BID PRN anxiety #90 tabs 08/19/24 temazepam 15 mg capsule 30 mg (2 x 15 mg) PO BEDTIME PRN 12/09/24 sleep #60 caps oxycodone 5 mg tablet 5 mg PO Q6H PRN pain #20 tab s 01/27/25 tamsulosin 0.4 mg capsule (Flomax) 0.4 mg PO DAILY #60 caps 01/27/25 Allergies Allergy/AdvReac Type Severity Reaction Status Date / Time No Known Drug Allergies Allergy Verified 01/27/25 15:28 Review of Systems Review of Systems Narrative: Pertinent positive and negative findings as per HPI Patient History Medical History (Updated 01/27/25 @ 17:40 by Claudia Webster MD) Alcohol intoxication Ischemic cardiomyopathy CAD (coronary artery disease) GERD (gastroesophageal reflux disease) Acute sinusitis Anxiety Surgical History No pertinent past surgical history Family History Brother Age: 62 Throat cancer Father Cancer Heart disease Mother Age: 98 Hypertension Stroke UTI (urinary tract infection) Social History Smoking Status: Unknown if ever smoked Smoking Status: Unknown if ever smoked alcohol intake frequency: 3 or more drinks per day Exam Initial Vital Signs Initial Vital Signs: Vital Signs Temperature 98.3 F 01/27/25 15:20 Pulse Rate 61 01/27/25 15:20 Respiratory Rate 16 01/27/25 15:20 Blood Pressure 195/82 H 01/27/25 15:20 Pulse Oximetry 97 01/27/25 15:20 Oxygen Delivery Method Room Air 01/27/25 15:20 General: Alert appropriate in no acute distress Respiratory: Able to speak in full sentences, no obvious respiratory distress Abdomen: No rebound or guarding, right flank pain Skin: No obvious rashes, warm and dry Neurologic: Grossly intact no obvious asymmetries or abnormalities Psych: appropriate insight and affect, cooperative Course Orders Ordered: ED Orders 01/27/25 15:33 Complete Blood Count AUTO DIFF Stat 01/27/25 15:50 Urinalysis and Microscopic Stat 01/27/25 16:02 CT kidney ureter bladder (KUB) Stat Hydromorphone HCl (Hydromorphone Hcl 0.5 Mg/0.5 Ml Syringe) 0.5 mg IV Q15MIN PRN PRN Reason: Pain, Last Admin: 01/27/25 15:56 Dose: 0.5 mg Documented By: MARNIE Discontinued Medications Sodium Chloride (Normal Saline 0.9%) 1,000 mls @ 1,000 mls/hr IV BOLUS ONE Stop: 01/27/25 16:49 Last Infusion: 01/27/25 17:28 Dose: Infused Documented By: Admin: 01/27/25 16:03 Dose: 1,000 mls/hr Documented By: MARNIE Ketorolac Tromethamine (Ketorolac 30 Mg/Ml Vial) 15 mg IV NOW ONE Stop: 01/27/25 15:51 Last Admin: 01/27/25 15:57 Dose: 15 mg Documented By: ES Vital Signs Vital signs: Vital Signs - 8 hr 01/27/25 15:20 01/27/25 15:26 01/27/25 15:27 Temperature 98.3 F Pulse Rate 61 Respiratory Rate 16 Blood Pressure 195/82 H 195/82 H Pulse Oximetry 97 98 Oxygen Delivery Method Room Air 01/27/25 15:27 01/27/25 15:30 01/27/25 16:00 Temperature Pulse Rate 62 62 66 Respiratory Rate Blood Pressure Pulse Oximetry 100 100 99 Oxygen Delivery Method 01/27/25 16:30 01/27/25 16:33 01/27/25 16:33 Temperature Pulse Rate 73 74 Respiratory Rate Blood Pressure 115/67 Pulse Oximetry 92 95 Oxygen Delivery Method Medical Decision Making Lab Data 01/27/25 15:33 Labs: Lab Results 01/27/25 Range/Units 15:33 WBC 10.8 (4.5-11.0) X10^3/uL RBC 3.86 L (4.5-5.9) X10^6/uL Hgb 12.8 L (13.5-17.5) g/dL Hct 36.8 L (41-53) % MCV 95.5 (80-100) fL MCH 33.3 (26-34) PG MCHC 34.8 (30-36) % RDW 13.6 (11.6-14.8) % Plt Count 154 (150-400) X10^3/uL Neut % (Auto) 84.9 H (50-75) % Lymph % (Auto) 8.9 L (25-40) % [place] % (Auto) 5.7 (3-14) % Eos % (Auto) 0.2 L (2-4) % Baso % (Auto) 0.3 (0-2) % Neut # (Auto) 9200 H (5135-1510) /uL Lymph # (Auto) 1000 L (1075-6717) /uL [place] # (Auto) 600 (0-900) /uL Eos # (Auto) 0 (0-450) /uL Baso # (Auto) 0 (0-100) /uL MDM Narrative Medical decision making narrative: 74-year-old gentleman with known left-sided 6 mm ureterovesical junction stone diagnosed on CT scan on the . Has not had and difficulty with the pain until approximately [address] scan today shows they are still slight amount of flow, the stone has not moved there is more perinephric stranding consistent with his increased pain. In the emergency department he was given Toradol and a L of fluid with pain controlled. At home the oxycodone was not completely effective he does still have more at home and has Tylenol as well as Zofran available. There was no evidence of infection or acute kidney failure. Care is reviewed with Dr. Aguirre per phone. Recommendation was continue outpatient pain control and his office will contact the patient to be further evaluated on Sunday or Sunday of next week Findings reviewed with the patient, additional oxycodone is given. Reasons to return to the emergency department and expected contact with Urology office are reviewed, there was no indication for hospitalization at this time she is safe for discharge Discharge Plan Departure Patient Disposition: Home Clinical Impression: Kidney stone on left side Hydronephrosis Qualifiers: Hydronephrosis type: with ureteropelvic junction obstruction Qualified Code(s): Q62.11 - Congenital occlusion of ureteropelvic junction Instructions: DI for Kidney Stones Activity Restrictions/Additional Instructions: Thank you for coming back in today. Further workup does not indicate infection. Repeat CT scan shows the stone has not moved but there is more swelling and inflammation around your kidney in the upper part of your ureter which correlates with your pain I did speak with our urologist and his recommendation was to continue to keep pain controlled with the appropriate medications at home, his office will contact you likely on Sunday and he would like to see you in his office to discuss further treatment and evaluation by Sunday or Sunday of next week. Using 400 mg of ibuprofen (2 [id number] pills) and 1 Tylenol every 6 hours can be very helpful in controlling pain. For severe pain you can add oxycodone to this. If you are using oxycodone , I would recommend a stool softener as it does cause constipation Reasons to return to the emergency department include uncontrolled pain, fevers or chills car, confusion, or other changes of concern. If you do not hear from the urology office by Sunday of next week, please call their office at [phone] Aguirre like to see you for a ER follow up. Prescriptions: New oxycodone 5 mg tablet 5 mg PO Q6H PRN (Reason: pain) Qty: 20 0RF No Action citalopram 40 mg tablet See Rx Instructions .ROUTE .COMPLEX Qty: 90 1RF Dose Instruction: take 1 tablet by mouth once daily Rx Instructions: take 1 tablet by mouth once daily hydroxyzine HCl 25 mg tablet 25 mg PO BID PRN (Reason: anxiety) Qty: 90 1RF temazepam 15 mg capsule 30 mg PO BEDTIME PRN (Reason: sleep) Qty: 60 0RF atorvastatin [Lipitor] 40 mg tablet 40 mg PO QPM lisinopril 2.5 mg tablet 2.5 mg PO DAILY metoprolol succinate [Toprol XL] 25 mg tablet extended release 24 hr 12.5 mg PO DAILY tamsulosin [Flomax] 0.4 mg capsule 0.4 mg PO DAILY Qty: 60 0RF Referrals: Magen Arellano MD [Primary Care Provider, Family Practice] Stand Alone Forms: Patient Portal/API
[2025-01-27] MEDS: KETOROLAC 30 MG/ML VIAL 15 MG IV (15:57)
[2025-01-27 16:02] LABS: Add Manual Diff / Slide Review NO; Hematocrit 36.8 % (41-53); Hemoglobin 12.8 g/dL (13.5-17.5); Lymphocytes Absolute Auto 1000 /uL (1100-4500); Mean Corpuscular HGB Conc 34.8 % (30-36); Mean Corpuscular Hemoglobin 33.3 PG (26-34); Mean Corpuscular Volume 95.5 fL (80-100); Platelet Count 154 X10^3/uL (150-400)
--- NOTE | 2025-01-27 16:02 | DI.CT.S_ITS ---
PROCEDURE: CT KIDNEY URETER BLADDER (KUB) INDICATIONS: Left flank pain. 6mm stone UPJ on 01/20 worsening TECHNIQUE: CT of the abdomen and pelvis was obtained without intravenous contrast. Coronal and sagittal reformats were performed. For radiation dose reduction, the following was used: automated exposure control, adjustment of mA and/or kV according to patient size. COMPARISON: [facility], CT, CT ABDOMEN PELVIS W CON, 01/20/2025, 12:11. FINDINGS: Image quality: Diagnostic. Lower Chest: Calcified granuloma right lower lobe. Lung bases are otherwise clear. ABDOMEN: Liver: No contour-deforming mass. Multiple small hypoattenuating lesions in the liver appear unchanged, likely cysts. Gallbladder: No radiopaque gallstones or wall thickening. Biliary ducts: No biliary dilation. Pancreas: No ductal dilation. Spleen: Size is within normal limits. Adrenal Glands: No adrenal nodules. Kidneys and Ureters: Left proximal ureteral 6 mm calculus is again seen at the ureteropelvic junction with moderate left hydronephrosis and significantly increased surrounding perinephric and periureteral fat stranding. No right hydronephrosis. Multiple left renal cysts again seen. Stomach and Bowel: Multiple colonic diverticula without signs of acute diverticulitis. Small bowel loops are unremarkable. Peritoneum: No abnormal intraperitoneal fluid. No free air. Ventral Wall: No significant hernia. Abdominal Nodes: No retroperitoneal or mesenteric adenopathy by size criteria. Vessels: Aorta and inferior vena cava are normal in size. PELVIS: Pelvic Organs: Prostate is enlarged. Bladder: Circumferential bladder wall thickening again seen that is again slightly more prominent at the bladder base. Pelvic Nodes: No enlarged lymph nodes. Miscellaneous: No inguinal hernias are seen. Bones: No aggressive osseous abnormality. IMPRESSION: Left proximal ureteral 6 mm calculus again seen in unchanged position at the ureteropelvic junction with moderate left hydroureteronephrosis and significantly increased perinephric fat stranding. Approved by: Laci Holcomb M.D. on 01/27/2025 at 16:54
[2025-01-27] MEDS: SODIUM CHLORIDE 0.9% 1,000 ML 1000 ML IV (16:03)
== END 2025-01-27 17:45 | disposition home or self-care (01) ==
PROVIDERS: Emergency Provider Emergency Medicine; PCP Family Medicine
DX: N20.0 Calculus of kidney (principal); Q62.11 Congenital occlusion of ureteropelvic junction
CPT/HCPCS: 74176; 85025; 96361; 96374; 96375; 99283; 99284; J1171; J1885

== ENCOUNTER → 2025-02-04 09:56 | Outpatient (CLI) | payer OTHER, SELFPAY | PROVIDERS: PCP Family Medicine; Visit Provider Urology | DX: N20.1 Calculus of ureter (principal) | CPT/HCPCS: 87086 ==

== ENCOUNTER → 2025-03-09 11:35 | Outpatient (CLI) | payer OTHER, SELFPAY ==
[2025-03-09 12:35] LABS: Add Manual Diff / Slide Review NO; Hematocrit 34.0 % (41-53); Hemoglobin 11.8 g/dL (13.5-17.5); Lymphocytes Absolute Auto 1200 /uL (1100-4500); Mean Corpuscular HGB Conc 34.6 % (30-36); Mean Corpuscular Hemoglobin 33.3 PG (26-34); Mean Corpuscular Volume 96.5 fL (80-100); Platelet Count 130 X10^3/uL (150-400)
[2025-03-09 12:46] LABS: Hemoglobin A1C% w Est Avg Glu 5.2 % (4.0-6.0)
[2025-03-09 12:54] LABS: Alanine Aminotransferase 25 IU/L (<50); Albumin 4.1 g/dL (3.5-5.0); Albumin Globulin Ratio 1.7 (1.0-2.8); Alkaline Phosphatase 64 U/L (38-126); Blood Urea Nitrogen 20 mg/dL (9-20); Calcium 9.3 mg/dL (8.4-10.2); Carbon Dioxide 26 mmol/L (22-32); Chloride 104 mmol/L (98-107); Cholesterol 146 mg/dL (140-199); Estimated Glomerular Filt Rate > 60 mL/min (>60); Globulin 2.4 g/dL (1.7-4.1); Glucose 93 mg/dL (70-99); HDL Cholesterol 80 mg/dL (40-60); HEMOLYSIS < 15 (0-50); Potassium 4.5 mmol/L (3.4-5.1); Sodium 136 mmol/L (137-145); Total Protein 6.5 g/dL (6.3-8.2); Triglycerides 67 mg/dL (35-150)
[2025-03-09 13:26] LABS: TSH w/ Reflex to FT4 1.91 uIU/mL (0.47-4.68)
== END ==
PROVIDERS: PCP Family Medicine; Referring Provider Family Medicine; Visit Provider Family Medicine
DX: Z00.00 Encounter for general adult medical examination without abnormal findings (principal); I25.5 Ischemic cardiomyopathy; I25.10 Atherosclerotic heart disease of native coronary artery without angina pectoris; F41.9 Anxiety disorder, unspecified; F33.9 Major depressive disorder, recurrent, unspecified; Z12.5 Encounter for screening for malignant neoplasm of prostate; R73.9 Hyperglycemia, unspecified; N20.9 Urinary calculus, unspecified
CPT/HCPCS: 36415; 80053; 80061; 82043; 82172; 82310; 82570; 83036; 83970; 84443; 85025; G0103